=== PATIENT | male | born 1960 | race Caucasian/White ===

== ENCOUNTER 2020-01-14 09:04 | Outpatient (CLI) | payer OTHER, SELFPAY ==
[2020-01-14 10:12] LABS: Basophils Absolute Auto 0.1 K/mm3 (0.0-0.1); Eosinophils Absolute Auto 0.4 K/mm3 (0-0.3); Eosinophils Percent Auto 4.8 % (0-4.4); Hematocrit 35.7 % (42.0-52.0); Hemoglobin 11.6 g/dL (14.0-18.0); Immature Granulocyte Absolute 0.02 K/mm3 (0.00-0.031); Immature Granulocyte Percent A 0.2 % (0-0.5); Lymphocytes Absolute Auto 1.35 K/mm3 (0.9-3.2); Lymphocytes Percent Auto 16.1 % (18.3-44.2); Mean Corpuscular HGB Conc 32.5 g/dl (32-36); Mean Corpuscular Hemoglobin 31.4 pg (26-34); Mean Corpuscular Volume 96.7 fl (80-100); Mean Platelet Volume 12.2 fl (7.4-10.4); Monocytes Absolute Auto 0.8 K/mm3 (0.1-0.6); Monocytes Percent Auto 9.5 % (2.6-8.5); Neutrophils Absolute Auto 5.8 K/mm3 (1.3-6.7); Neutrophils Percent Auto 68.4 % (45.5-73.1); Platelet Count Result 216 k/mm3 (150-375); Red Blood Count 3.69 M/mm3 (4.6-6.20); Red Cell Distribution Width 13.4 % (11.5-14.5); White Blood Count 8.4 K/mm3 (4.5-10.0)
[2020-01-14 10:28] LABS: Influenza Control Positive
== END 2020-01-14 09:05 | disposition home or self-care (01) ==
PROVIDERS: PCP Internal Medicine; Visit Provider Internal Medicine
DX: R68.89 Other general symptoms and signs (principal); R79.89 Other specified abnormal findings of blood chemistry
CPT/HCPCS: 85025; 87804

== ENCOUNTER 2020-01-16 10:04 | Outpatient (CLI) | payer OTHER, SELFPAY ==
--- NOTE | ~2020-01-16 | US_ITS ---
EXAMINATION: US renal BI EXAM DATE: 01/16/2020 10:37 INDICATION: Abnormal blood chemistry. TECHNIQUE: Multiple grayscale and Doppler images of the kidneys were obtained (by a technologist who performed the scan) and subsequently reviewed. There is no prior study for comparison. FINDINGS: Right kidney: There is normal contour and echogenicity. It measures 9.2 x 5.2 x 4.5 centimeters. The re is a cyst with single septation identified inferiorly measuring about 3 cm. There is no hydronep hrosis. Left kidney: There is normal contour and echogenicity. It measures 9.9 x 5.8 x 5.9 centimeters. The re are no focal renal lesions identified. There is no hydronephrosis. The bladder is collapsed, not well visualized. IMPRESSION: 1. Right renal cyst. No hydronephrosis. Reviewed, dictated and finalized at location B. [employer]
== END 2020-01-16 10:05 | disposition home or self-care (01) ==
PROVIDERS: PCP Internal Medicine; Visit Provider Internal Medicine
DX: R79.9 Abnormal finding of blood chemistry, unspecified (principal); N28.1 Cyst of kidney, acquired
CPT/HCPCS: 76775

== ENCOUNTER 2021-01-26 17:45 | Outpatient (CLI) | payer OTHER, SELFPAY | END 2021-01-26 17:46 | disposition home or self-care (01) | LOC: ANHCOVIDVC 17:45 | PROVIDERS: PCP Internal Medicine; Visit Provider Internal Medicine | DX: Z23 Encounter for immunization (principal) | CPT/HCPCS: 0001A; 91300 ==

== ENCOUNTER 2021-02-16 17:39 | Outpatient (CLI) | payer OTHER, SELFPAY | END 2021-02-16 17:40 | disposition home or self-care (01) | LOC: ANHCOVIDVC 17:39 | PROVIDERS: PCP Internal Medicine; Visit Provider Internal Medicine | DX: Z23 Encounter for immunization (principal) | CPT/HCPCS: 0002A; 91300 ==

== ENCOUNTER 2022-04-21 12:47 | Inpatient (IN) | payer OTHER, SELFPAY ==
--- NOTE | ~2022-04-21 | XR_ITS ---
EXAMINATION: XR foot RT min 3V DATE: 04/21/2022 13:58 INDICATION: Right great toe erythema and swelling. TECHNIQUE: 4 views of right foot were obtained. COMPARISON: None. FINDINGS: Bone alignment is normal. No fracture. There is severe osteoarthritis of first metatarsopha langeal joint and moderate osteoarthritis of first interphalangeal joint. There is mild to moderate o steoarthritis of most of the midfoot joints. There are enthesophytes at the posterior and plantar asp ects of calcaneal tuberosity. IMPRESSION: 1. Polyarticular osteoarthritis. Reviewed, dictated and finalized at location A.
--- NOTE | ~2022-04-21 | MR_ITS ---
EXAMINATION: MR foot RT wo/w con DATE: 04/22/2022 12:07 INDICATION: Right great toe wound extending to the bone TECHNIQUE: Magnetic resonance imaging (MRI) of the right fore/mid foot was performed without and with 20 mL Multihance intravenous contrast. Sequences included axial, sagittal and coronal T1-weighted FS E, sagittal fluid sensitive FSE STIR, axial and coronal T2-weighted FS FSE, axial T1-weighted FS FSE and postcontrast axial, sagittal and coronal T1-weighted FS FSE . COMPARISON: Right foot radiographs dated 04/21/2022 FINDINGS: Skin ulceration plantar to the base of the first distal phalanx. Small amount of nonenhancing fluid e xtending along a sinus tract which extends deep from the ulceration to contact the a small heterotopi c ossicle along the plantar margin of the proximal articular surface of the first distal phalanx. The re is mild marrow edema and enhancement throughout the first distal phalanx without evident cortical erosion or geographic loss of T1 marrow fat signal to more specifically suggest osteomyelitis. Advanc ed osteoarthritis with subarticular cystlike changes and prominent hypertrophic osteophytes at the fi rst metatarsophalangeal joint. There are large heterotopic ossicles along the dorsal margin of the samantha int space. Additional moderate osteoarthritis at the first interphalangeal joint also with prominent marginal osteophytes and plantar sided heterotopic ossicles. No abscess or joint effusions. Additiona l mild osteoarthritis at the tarsal metatarsal and several of the remaining interphalangeal joints. P rominent fatty atrophy and mild diffuse increased fluid signal throughout the intrinsic musculature o f the foot likely related to acute on chronic neuropathy. IMPRESSION: 1. Diffuse mild marrow edema and enhancement at the first distal phalanx most likely reactive althoug h could not absolutely exclude early osteomyelitis. No cortical erosion or geographic loss of T1 fat signal to more specifically suggest osteomyelitis. 2. Deep sinus tract extending from a small ulceration plantar to the base of the first proximal phala nx to closely approaches and potentially contacting a couple small likely degenerative heterotopic os sicle separate from the distal phalanx. No abscess or joint effusion to suggest septic arthritis. 3. Polyarticular osteoarthritis at the right forefoot, advanced at the first metatarsophalangeal join t, moderate at the first interphalangeal joint and otherwise mild. Reviewed, dictated and finalized at location B. IMPRESSION: 1. Diffuse mild marrow edema and enhancement at the first distal phalanx most l ikely reactive although could not absolutely exclude early osteomyelitis. No co rtical erosion or geographic loss of T1 fat signal to more specifically suggest osteomyelitis. 2. Deep sinus tract extending from a small ulceration plantar to the base of th e first proximal phalanx to closely approaches and potentially contacting a cou ple small likely degenerative heterotopic ossicle separate from the distal phal anx. No abscess or joint effusion to suggest septic arthritis. 3. Polyarticular osteoarthritis at the right forefoot, advanced at the first me tatarsophalangeal joint, moderate at the first interphalangeal joint and otherw ise mild.
--- NOTE | ~2022-04-21 | XR_ITS ---
EXAMINATION: XR surgery orthopedic DATE: 04/23/2022 14:29 INDICATION: Right great toe infection. TECHNIQUE: A single intraoperative fluoroscopic view of right foot was obtained. I was not present. F luoroscopy exposure time was 6 seconds. COMPARISON: Right foot MRI 04/22/2022, radiograph 04/21/2022 FINDINGS: Bone alignment is normal. There is fixation of first metatarsal, first proximal phalanx, an d first distal phalanx with a percutaneous pin. There are beads around first metatarsophalangeal join t. There is resection of osteophytes at first metatarsophalangeal joint. IMPRESSION: 1. Great toe surgical changes. Reviewed, dictated and finalized at location A.
[2022-04-21 12:48] VITALS: BP 127/68; PULSE 88; RESP 16; TEMP 36.8; O2SAT 100
[2022-04-21 13:43] LABS: Basophils Percent Auto 0.2 % (0.2-1.2); Hematocrit 34.9 % (42.0-52.0); Hemoglobin 12.1 g/dL (14.0-18.0); Immature Granulocyte Absolute 0.07 K/mm3 (0.00-0.031); Immature Granulocyte Percent A 0.6 % (0-0.5); Lymphocytes Absolute Auto 0.34 K/mm3 (0.9-3.2); Lymphocytes Percent Auto 2.7 % (18.3-44.2); Mean Corpuscular HGB Conc 34.7 g/dl (32-36); Mean Corpuscular Hemoglobin 32.5 pg (26-34); Mean Corpuscular Volume 93.8 fl (80-100); Mean Platelet Volume 12.3 fl (7.4-10.4); Monocytes Absolute Auto 0.4 K/mm3 (0.1-0.6); Monocytes Percent Auto 3.1 % (2.6-8.5); Neutrophils Absolute Auto 11.8 K/mm3 (1.3-6.7); Neutrophils Percent Auto 93.4 % (45.5-73.1); Platelet Count Result 160 k/mm3 (150-375); Red Blood Count 3.72 M/mm3 (4.6-6.20); Red Cell Distribution Width 13.7 % (11.5-14.5); White Blood Count 12.6 K/mm3 (4.5-10.0)
[2022-04-21 13:52] LABS: Lactic Acid Reflex 1.2 mmol/L (0.7-2.0)
[2022-04-21 13:55] LABS: Alanine Aminotransferase 21 U/L (6-50); Albumin Level 4.6 g/dL (3.5-5.1); Alkaline Phosphatase 91 U/L (38-126); Anion Gap 12 mmol/L (8-16); Aspartate Amino Transferase 29 U/L (17-59); Bilirubin,Total 1.6 mg/dL (0.2-1.3); Blood Urea Nitrogen 27 mg/dL (9-20); Calcium 9.3 mg/dL (8.4-10.2); Carbon Dioxide 15 mmol/L (22-30); Chloride 108 mmol/L (98-107); Estimated CRCL calculation 52 ml/min; Estimated Glomerular Filt Rate 39; Glucose 153 mg/dL (65-110); Potassium 4.4 mmol/L (3.4-5.0); Sodium 135 mmol/L (137-145)
[2022-04-21 13:56] LABS: INR 1.2
[2022-04-21 13:57] LABS: Partial Thromboplastin Time 38.4 SECONDS (22.3-36.8)
[2022-04-21] MEDS: SODIUM CHLORIDE 0.9% IV 1,000 ML 999 ML IV CONT (14:24)
[2022-04-21 14:59] LABS: Appearance Urine Clear (Clear); Bilirubin Urine Negative (Negative); Blood Urine Negative (Negative); Color Urine Yellow (Yellow); Glucose Urine UA Negative (Negative); Ketones Urine Negative (Negative); Leukocyte Esterase Ur Negative LEU/UL (Negative); Nitrate Urine Negative (Negative); Protein Urine Negative (Negative); Specific Grav Ur 1.015 (1.001-1.035); pH Urine 5.5 (5.0-9.0)
[2022-04-21 15:09] LABS: Add Urine Microscopic? NO
[2022-04-21 15:22] VITALS: BP 120/67; PULSE 75; RESP 18; O2SAT 97
--- NOTE | 2022-04-21 15:42 | ED.GENADULT ---
HPI - General Adult General Chief complaint: Extremity Injury, Lower Stated complaint: foot pain Time Seen by Provider: 04/21/22 13:12 Source: RN notes reviewed History of Present Illness HPI narrative: Patient presents emergency department from home for right great toe wound. Patient states that he has had redness and swelling of his right great toe for approximately a month that is progressively been worsening. He states he is got history of peripheral neuropathy and had a callus in that area and that the callus of them been shaved and noted that he had the ulcer underneath it today by Dr. Baez he states he been referred to the ER for further evaluation he states he does have peripheral neuropathy but had been having some increased pain in his foot he denies any fevers or chills states he is currently on steroid but denies being on any antibiotics Related Data Home Medications Medication Instructions Recorded Confirmed cream base no.171 (bulk) applic miscellaneous TID PRN 04/03/21 04/20/22 (CompoundMax Base) neuropathy cyanocobalamin (vitamin B-12) 1,000 mcg PO DAILY 04/30/21 04/20/22 1,000 mcg tablet (Vitamin B-12) omega-3 fatty acids 1,000 mg 2,000 mg PO BID 04/30/21 04/20/22 capsule (Fish Oil Concentrate) dextromethorphan-guaifenesin 30 1 tablet PO Q12H 04/20/22 04/20/22 mg-600 mg tablet extended [id number] hr (Mucinex DM) Allergies Allergy/AdvReac Type Severity Reaction Status Date / Time No Known Allergies Allergy Mild Verified 04/20/22 07:07 Review of Systems Review of Systems: Gen.: Denies fevers or chills ENT: Denies congestion Respiratory: Denies shortness of breath CV: Denies chest pain or palpitations GI: Denies abdominal pain nausea, emesis Musculoskeletal: Denies back pain or muscle pain Neuro: Denies numbness, tingling, weakness or focal weakness Skin: See HPI Except as documented, all other systems reviewed and negative PMFSH Past Medical History Medical History Anxiety Benign essential hypertension BMI 31.0-31.9,adult BMI 32.0-32.9,adult BMI 33.0-33.9,adult Callus of toe CKD (chronic kidney disease) Complete tear of rotator cuff Creatinine elevation Decreased anthropologist strength DJD (degenerative joint disease), multiple sites Dupuytren's contracture Dupuytren's contracture of left hand Elevated glucose Elevated LFTs Elevated serum creatinine Elevated serum GGT level Elevated TSH Encounter for preventive health examination Encounter for routine adult health examination without abnormal findings Encounter for special screening examination for neoplasm of prostate Erectile dysfunction Follow up Gouty arthritis Hyperlipidemia Nausea and vomiting 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 CARDIOVASCULAR: Regular rate and rhythm without murmurs rubs or gallops. ABDOMINAL: Soft, nontender, MUSCULOSKELETAl: Moves all extremities. No clubbing, cyanosis 2+ edema bilateral lower extremities the right great toe is erythematous and swollen with erythema extending to the midfoot there is an ulcerative wound over the base of the toe with mild serous drainage no fluctuance NEURO: Awake and alert. Following commands, speech normal, no focal deficits SKIN:: Warm, dry. No
--- NOTE | 2022-04-21 17:15 | PC.NURSE ---
This patient, Segundo Danielson, was admitted to 3 [facility] Surg Room 327-01. Patient/family oriented to hospital policies and general routines including ID bracelet, bed and alarms, visiting hours, pain management, procedures, bathroom and other care routines, personal items, smoking policy, room service/diet, and visiting hours. Report received from Valentina GOMES Information on how to activate the Rapid Response Team has been discussed. Patient/Family are encouraged to report perceived risks to care and to ask questions if they do not understand what they are told or what they should do.
[2022-04-21] MEDS: SODIUM CHLORIDE 0.9% IV 1,000 ML 80 ML IV CONT (17:57)
[2022-04-21 17:59] VITALS: BP 107/63; PULSE 69; RESP 18; TEMP 36.1; O2SAT 98
--- NOTE | 2022-04-21 18:00 | PM.IMHP ---
H&P: HPI History of Present Illness Date/Time: 04/21/22 18:00 Chief Complaint: Right 1st toe wound. Narrative: This is a pleasant 62-year-old male with history of gout, rheumatoid arthritis, peripheral neuropathy, hypertension, and hyperlipidemia who presented to the ED for evaluation of a right 1st toe wound. He frequently has gout and rheumatoid arthritis flares affecting his right 1st toe, and sometime in mid January he once again developed pain, swelling, and redness of that toe. Initially there were concerns for possible infection and he was treated with a round of antibiotics with some benefit. Two weeks after finishing the antibiotics, however the pain, redness, and swelling returned and he went back to see his doctor at which time he was prescribed steroids for suspected gout. Re-evaluation a week later demonstrated no improvement and he was referred to Podiatry. He saw Dr. Green this morning at which time a large callus area on the plantar aspect of that toe was shaved, revealing an ulcer tracking to the bone. He has been afebrile however notes chills the past couple of nights. He also endorses nausea with poor oral intake the past couple of days and he believes that he is dehydrated as his urine has been darker than usual. In fact he had difficulties even providing a urine sample today. White blood cell count today was 12.6 and ESR and CRP were markedly elevated at greater than 140 and 18.5 respectively. Foot x-ray showed Severe osteoarthritis of the 1st metatarsophalangeal joint and moderate arthritis of the 1st interphalangeal joint with no evidence osteomyelitis. He is now being admitted for IV antibiotics. Review of Systems Review of Systems: Twelve systems were reviewed. No recent cold or flu symptoms though he does report generalized malaise the last several days. No sick contacts. He has idiopathic peripheral neuropathy and he really has no discomfort with the wound. Random glucose today was elevated and he has no known history of diabetes. Hemoglobin A1c in January 2022 was 5.2%. No longer on methotrexate for RA. Except as documented, all other systems were reviewed and are negative. [facility] Past Medical History Medical History (Updated 04/21/22 @ 20:34 by Trina Robles PA-C) Anxiety Benign essential hypertension BMI 32.0-32.9,adult Chronic kidney disease, stage 3 Dupuytren's contracture Erectile dysfunction Gouty arthritis Hyperlipidemia Peripheral neuropathy Rheumatoid arthritis Vitamin B12 deficiency Vitamin D deficiency Surgical History Surgical History (Updated 04/21/22 @ 20:28 by Trina Robles PA-C) History of appendectomy Family History Family History Grandparent Heart attack AAA (abdominal aortic aneurysm) Lupus Social History Social History (Updated 04/21/22 @ 20:30 by Trina Robles PA-C) Social History: Surrogate decision maker: Peter Danielson, spouse. Code status: Full code. Smoking packs per day: 0.05 Smoking cigarettes per day: 1.0 Years smoked: 20 Smoking pack-years: 1.00 Smoking status: Former smoker Tobacco type: cigarettes Second hand tobacco smoke exposure: No Alcohol intake: current Drinks per week: 3 Substance use: never Living arrangements: with family Additional occupation/education comments: [employer] he[employer]o at [employer]. Spiritual care concerns: No Meds Home Medications and Allergies Home Medications Medication Instructions Recorded Confirmed Type folic acid 1 mg tablet 1 mg PO DAILY #90 tabs 04/30/21 04/21/22 Rx omega-3 fatty acids 1,000 mg 2,000 mg PO BID 04/30/21 04/21/22 History capsule (Fish Oil Concentrate) acyclovir 400 mg tablet 400 mg PO TID PRN cold sores #30 12/08/21 04/21/22 Rx tabs acetaminophen 300 mg-codeine 30 mg 1 tablet PO Q6H PRN pain #50 tabs 03/09/22 04/21/22 Rx tablet furosemide 20 mg tablet (Lasix) 20 mg PO QAM #90 tabs
[2022-04-21 18:13] VITALS: BMI 32.1
[2022-04-21 18:43] LABS: Erythrocyte Sedimentation Rate > 140 mm/hr (0-20)
[2022-04-21 18:47] LABS: CRP 18.5 mg/dL (<1.0)
[2022-04-21 20:00] VITALS: PULSE 69; RESP 18; O2SAT 98
[2022-04-21 21:19] LABS: Anion Gap 8 mmol/L (8-16); Blood Urea Nitrogen 33 mg/dL (9-20); Calcium 8.8 mg/dL (8.4-10.2); Carbon Dioxide 20 mmol/L (22-30); Chloride 106 mmol/L (98-107); Estimated CRCL calculation 52 ml/min; Estimated Glomerular Filt Rate 39; Glucose 129 mg/dL (65-110); Potassium 5.1 mmol/L (3.4-5.0); Sodium 134 mmol/L (137-145)
[2022-04-21 22:00] VITALS: BP 101/60; PULSE 53; RESP 18; TEMP 36.6; O2SAT 96
[2022-04-22 05:52] VITALS: BP 109/59; PULSE 51; RESP 20; TEMP 36.9; O2SAT 97
[2022-04-22 06:54] LABS: Basophils Percent Auto 0.4 % (0.2-1.2); Eosinophils Percent Auto 0.2 % (0-4.4); Hematocrit 32.3 % (42.0-52.0); Hemoglobin 10.4 g/dL (14.0-18.0); Immature Granulocyte Absolute 0.06 K/mm3 (0.00-0.031); Immature Granulocyte Percent A 0.6 % (0-0.5); Mean Corpuscular HGB Conc 32.2 g/dl (32-36); Mean Corpuscular Hemoglobin 31.7 pg (26-34); Mean Corpuscular Volume 98.5 fl (80-100); Mean Platelet Volume 12.5 fl (7.4-10.4); Monocytes Percent Auto 10.4 % (2.6-8.5); Neutrophils Absolute Auto 7.6 K/mm3 (1.3-6.7); Neutrophils Percent Auto 76.4 % (45.5-73.1); Platelet Count Result 152 k/mm3 (150-375); Red Blood Count 3.28 M/mm3 (4.6-6.20); Red Cell Distribution Width 13.4 % (11.5-14.5)
[2022-04-22 07:06] LABS: Anion Gap 8 mmol/L (8-16); Blood Urea Nitrogen 31 mg/dL (9-20); Calcium 8.4 mg/dL (8.4-10.2); Carbon Dioxide 18 mmol/L (22-30); Chloride 109 mmol/L (98-107); Estimated CRCL calculation 62 ml/min; Estimated Glomerular Filt Rate 48; Glucose 106 mg/dL (65-110); Potassium 4.1 mmol/L (3.4-5.0); Sodium 135 mmol/L (137-145); Uric Acid 2.8 mg/dL (3.5-8.5)
[2022-04-22 09:12] LABS: Hemoglobin A1C 5.1 % (<5.7)
[2022-04-22] MEDS: SODIUM CHLORIDE 0.9% IV 1,000 ML 115 ML IV CONT (09:14)
[2022-04-22] MEDS: FOLIC ACID 1 MG TABLET PO (09:15)
[2022-04-22] MEDS: allopurinoL 300 MG TABLET PO ×2 (09:15→16:44)
[2022-04-22] MEDS: OMEGA 3 POLYUNSAT FATTY ACIDS 1 GM CAP 2 GM PO ×2 (09:15→16:43)
[2022-04-22] MEDS: ATORVASTATIN 20 MG TABLET PO (09:15)
[2022-04-22] MEDS: ACETAMINOPHEN/CODEINE (*CRX) 300/30 MG TABLET 1 TAB PO (09:26)
--- NOTE | 2022-04-22 09:49 | PCCCNOTE ---
On 04/22/22, the student, [Dodie Cuenca], provided care and completed [facility] documentation on this patient. I have reviewed the student's documentation and agree with the findings.
[2022-04-22 14:20] VITALS: BP 111/66; PULSE 55; RESP 18; TEMP 36.3; O2SAT 97
--- NOTE | 2022-04-22 15:11 | PM.IMPN ---
Progress Note: A&P Assessment and Plan (1) Open wound of right great toe: Code(s): S91.101A - Unspecified open wound of right great toe without damage to nail, initial encounter Status: Acute Assessment and Plan: -No evidence of osteomyelitis on x-ray though wound does track to bone. -MRI unable to definitively exclude osteomyelitis -Hgb A1c 5.1 -Dr. Baez consulted and his input is appreciated. -Continue vanc and impenem (2) Cellulitis of great toe of right foot: Code(s): L03.031 - Cellulitis of right toe Status: Acute Assessment and Plan: -Imipenem and vancomycin, pending cultures (3) Peripheral neuropathy: Qualifiers: Peripheral neuropathy type: polyneuropathy, unspecified Qualified Code(s): G62.9 - Polyneuropathy, unspecified Code(s): G62.9 - Polyneuropathy, unspecified Status: Acute Assessment and Plan: -Idiopathic peripheral neuropathy per patient report. -hemoglobin A1c 5.1 (4) Hyperglycemia: Code(s): R73.9 - Hyperglycemia, unspecified Status: Acute Assessment and Plan: -Random glucose was 153 on arrival though he was recently on steroids. -hemoglobin A1c is 5.1 (5) Chronic kidney disease, stage 3: Code(s): N18.30 - Chronic kidney disease, stage 3 unspecified Status: Acute Assessment and Plan: -Creatinine is higher than baseline, likely due to poor oral intake the past couple of days. -Improving with IV hydration, was 1.8 down to 1.5 -Repeat BMP in the AM (6) Benign essential hypertension: Code(s): I10 - Essential (primary) hypertension Status: Acute Assessment and Plan: -Blood pressures were reviewed and they are well controlled. -continue home meds (7) Rheumatoid arthritis: Qualifiers: Rheumatoid arthritis location: multiple sites Rheumatoid factor presence: unspecified presence Qualified Code(s): M06.9 - Rheumatoid arthritis, unspecified Code(s): M06.9 - Rheumatoid arthritis, unspecified Status: Acute Assessment and Plan: -No longer on methotrexate. Subjective Date/time seen: 04/22/22 15:11 Interval history: 62-year-old male with history of gout, rheumatoid arthritis, peripheral neuropathy, hypertension, and hyperlipidemia, admitted for R great toe ulcer. Pt had just spoken with podiatry and was told he may need amputation, so therefore was visibly anxious during our conversation today. He denies pain in the toe. Reports lack of sensation secondary to his neuropathy. Had some chills prior to arrival but now denies fever, chills, N/V. No cp/sob. Review of Systems Review of Systems: All systems reviewed & are unremarkable except as noted in HPI and below Exam Narrative: General: Well-developed male sitting up in bed no distress. Slightly anxious. Weight: 113.5 kg. BMI: 32.1. HEENT: PERRL, EOMI. Sclerae anicteric. Moist mucous membranes. Neck: Supple. Respiratory: Lungs are clear to auscultation bilaterally. Cardiovascular: Regular rate and rhythm with S1-S2. Gastrointestinal: Abdomen is soft, nontender, and nondistended with positive bowel sounds. No organomegaly. Skin: Warm and dry. there is an approximately dime-sized wound on the plantar aspect of the right 1st toe with serosanguineous drainage. Cotton swab did track nearly to the bone. Surrounding erythema on to the dorsum of the toe with significant edema. Warmth emanates from the toe. Extremities: No cyanosis, clubbing, or edema. Radial and pedal pulses intact. Neurological: Alert. Cranial nerves 2-12 are grossly intact. Decreased sensation in the lower legs from neuropathy. Psychiatric: Pleasant and cooperative with normal mood and affect. Judgment and insight intact. Objective Data Vital Signs Vital Signs: Vital Signs - 24 hr 04/21/22 15:22 04/21/22 17:59 04/21/22 20:00 Temperature 97.0 F L
[2022-04-22] MEDS: PANTOPRAZOLE 40 MG TABLET PO (16:44)
--- NOTE | 2022-04-22 19:37 | PM.IMHP ---
H&P: HPI History of Present Illness Date/Time: 04/22/22 19:37 Chief Complaint: Foot infection right foot Narrative: The patient was admitted through [facility] ER for a foot wound that started to drain and get red hot and swollen over the last week, he states it started as a callus that eventually broke open . He was referred over to my office through his primary care physicians office 04/21/22, when the foot started to develop signs of infection. He was prescribed Doxycycline through his PCP, with no improvement over the last week. He states that he does have rheumatoid arthritis as well as gout, his right great toe joint has deformed over the last decade. He relates F/C/N malaise as well as right great toe pain, this is unusual for him as he has been diagnosed with severe peripheral neuropathy and has no sensation to his feet. He is not diabetic, however he has has idiopathic neuropathy. Review of Systems Constitutional: Comments: Chills, nausea and malaise. Musculoskeletal: Comments: Pain to the right foot with swelling. [facility] Past Medical History Medical History (Updated 04/22/22 @ 20:02 by Serg Baez JR, MD) Anxiety Benign essential hypertension BMI 32.0-32.9,adult Chronic kidney disease, stage 3 Dupuytren's contracture Erectile dysfunction Gouty arthritis Hyperlipidemia Peripheral neuropathy Rheumatoid arthritis Vitamin B12 deficiency Vitamin D deficiency Surgical History Surgical History (Updated 04/21/22 @ 20:28 by Trina Robles PA-C) History of appendectomy Family History Family History Grandparent Heart attack AAA (abdominal aortic aneurysm) Lupus Social History Social History (Updated 04/21/22 @ 20:30 by Trina Robles PA-C) Social History: Surrogate decision maker: Peter Danielson, spouse. Code status: Full code. 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 Spiritual care concerns: No Meds Home Medications and Allergies Home Medications Medication Instructions Recorded Confirmed Type folic acid 1 mg tablet 1 mg PO DAILY #90 tabs 04/30/21 04/21/22 Rx omega-3 fatty acids 1,000 mg 2,000 mg PO BID 04/30/21 04/21/22 History capsule (Fish Oil Concentrate) acyclovir 400 mg tablet 400 mg PO TID PRN cold sores #30 12/08/21 04/21/22 Rx tabs acetaminophen 300 mg-codeine 30 mg 1 tablet PO Q6H PRN pain #50 tabs 03/09/22 04/21/22 Rx tablet furosemide 20 mg tablet (Lasix) 20 mg PO QAM #90 tabs 04/07/22 04/21/22 Rx losartan 100 mg tablet 100 mg PO DAILY #90 tabs 04/07/22 04/21/22 Rx potassium chloride 8 mEq 8 meq PO DAILY #90 caps 04/07/22 04/21/22 Rx capsule,extended release dextromethorphan-guaifenesin 30 1 tablet PO Q12H PRN Allergic 04/20/22 04/21/22 History mg-600 mg tablet extended Symptoms [id number] hr (Mucinex DM) prednisone 20 mg tablet 40 mg PO DAILY 5 days #10 tabs 04/20/22 04/21/22 Rx allopurinol 300 mg tablet 300 mg PO BID 04/21/22 04/21/22 History atorvastatin 20 mg tablet 20 mg PO DAILY 04/21/22 04/21/22 History Allergies Allergy/AdvReac Type Severity Reaction Status Date / Time No Known Allergies Allergy Mild Verified 04/21/22 18:58 Vital Signs Vital Signs - 24 hr 04/21/22 20:00 04/21/22 22:00 04/22/22 05:52 Temperature 36.6 C 36.9 C Pulse Rate 69 53 L 51 L Respiratory Rate 18 18 20 Blood Pressure 101/60 109/59 L Pulse Oximetry 98 96 97 Oxygen Delivery Room Air 04/22/22 14:20 Temperature 36.3 C L Pulse Rate 55 L Respiratory Rate 18 Blood Pressure 111/66 Pulse Oximetry 97 Oxygen Delivery
[2022-04-22 20:00] VITALS: PULSE 71; RESP 16; O2SAT 98
[2022-04-22 20:30] VITALS: PULSE 60; O2SAT 94
[2022-04-22 21:53] VITALS: BP 110/61; PULSE 71; RESP 16; TEMP 36.2; O2SAT 98
[2022-04-23] VITALS (13 sets, daily range): BP systolic 110–143; BP diastolic 46–92; PULSE 52–81; RESP 12–20; TEMP 36.2–37.1; O2SAT 96–100
--- NOTE | 2022-04-23 07:05 | WPDHPUPDATE1 ---
History and Physical Update Update Date/Time: 04/23/22 07:05 History and Physical has been reviewed, including an updated exam of the patient. There are NO changes in the patient's condition. Risks, benefits, and alternatives have been discussed and questions answered. Patient agrees to proceed with procedure.
[2022-04-23 07:55] LABS: Basophils Absolute Auto 0.1 K/mm3 (0.0-0.1); Basophils Percent Auto 1.1 % (0.2-1.2); Eosinophils Absolute Auto 0.1 K/mm3 (0-0.3); Eosinophils Percent Auto 1.8 % (0-4.4); Hematocrit 33.7 % (42.0-52.0); Hemoglobin 11.2 g/dL (14.0-18.0); Immature Granulocyte Absolute 0.05 K/mm3 (0.00-0.031); Immature Granulocyte Percent A 0.7 % (0-0.5); Lymphocytes Absolute Auto 0.91 K/mm3 (0.9-3.2); Lymphocytes Percent Auto 12.4 % (18.3-44.2); Mean Corpuscular HGB Conc 33.2 g/dl (32-36); Mean Corpuscular Volume 96.3 fl (80-100); Mean Platelet Volume 11.9 fl (7.4-10.4); Monocytes Absolute Auto 0.6 K/mm3 (0.1-0.6); Monocytes Percent Auto 8.3 % (2.6-8.5); Neutrophils Absolute Auto 5.6 K/mm3 (1.3-6.7); Neutrophils Percent Auto 75.7 % (45.5-73.1); Platelet Count Result 181 k/mm3 (150-375); Red Cell Distribution Width 13.8 % (11.5-14.5); White Blood Count 7.3 K/mm3 (4.5-10.0)
[2022-04-23 08:17] LABS: Anion Gap 6 mmol/L (8-16); Blood Urea Nitrogen 23 mg/dL (9-20); Calcium 8.9 mg/dL (8.4-10.2); Carbon Dioxide 20 mmol/L (22-30); Chloride 113 mmol/L (98-107); Estimated CRCL calculation 77 ml/min; Estimated Glomerular Filt Rate > 60; Glucose 113 mg/dL (65-110); Sodium 139 mmol/L (137-145)
[2022-04-23] MEDS: allopurinoL 300 MG TABLET PO (09:25)
[2022-04-23] MEDS: PANTOPRAZOLE 40 MG TABLET PO (09:25)
[2022-04-23] MEDS: OMEGA 3 POLYUNSAT FATTY ACIDS 1 GM CAP 2 GM PO (09:25)
[2022-04-23] MEDS: ATORVASTATIN 20 MG TABLET PO (09:25)
[2022-04-23] MEDS: FOLIC ACID 1 MG TABLET PO (09:25)
--- NOTE | 2022-04-23 09:28 | PM.IMPN ---
Progress Note: A&P Assessment and Plan (1) Open wound of right great toe: Code(s): S91.101A - Unspecified open wound of right great toe without damage to nail, initial encounter Status: Acute Assessment and Plan: -No evidence of osteomyelitis on x-ray though wound does track to bone. -MRI unable to definitively exclude osteomyelitis -Hgb A1c 5.1 -Dr. Baez consulted and his input is appreciated. -Continue vanc and impenem -OR today for amputation (2) Cellulitis of great toe of right foot: Code(s): L03.031 - Cellulitis of right toe Status: Acute Assessment and Plan: -Imipenem and vancomycin, pending cultures (3) Peripheral neuropathy: Qualifiers: Peripheral neuropathy type: polyneuropathy, unspecified Qualified Code(s): G62.9 - Polyneuropathy, unspecified Code(s): G62.9 - Polyneuropathy, unspecified Status: Acute Assessment and Plan: -Idiopathic peripheral neuropathy per patient report. -hemoglobin A1c 5.1 (4) Hyperglycemia: Code(s): R73.9 - Hyperglycemia, unspecified Status: Acute Assessment and Plan: -Random glucose was 153 on arrival though he was recently on steroids. -hemoglobin A1c is 5.1 (5) Chronic kidney disease, stage 3: Code(s): N18.30 - Chronic kidney disease, stage 3 unspecified Status: Acute Assessment and Plan: -Creatinine is higher than baseline, likely due to poor oral intake the past couple of days. -Improving with IV hydration, was 1.8 down to 1.2 -Repeat BMP in the AM (6) Benign essential hypertension: Code(s): I10 - Essential (primary) hypertension Status: Acute Assessment and Plan: -Blood pressures were reviewed and they are well controlled. -continue home meds (7) Rheumatoid arthritis: Qualifiers: Rheumatoid arthritis location: multiple sites Rheumatoid factor presence: unspecified presence Qualified Code(s): M06.9 - Rheumatoid arthritis, unspecified Code(s): M06.9 - Rheumatoid arthritis, unspecified Status: Acute Assessment and Plan: -No longer on methotrexate. Subjective Date/time seen: 04/23/22 09:28 Interval history: 62-year-old male with history of gout, rheumatoid arthritis, peripheral neuropathy, hypertension, and hyperlipidemia, admitted for R great toe ulcer. Pt is going to OR for amputation today. Denies significant pain. No N/V/F/Ch/cp/sob. Review of Systems Review of Systems: All systems reviewed & are unremarkable except as noted in HPI and below Exam Narrative: General: Well-developed male sitting up in bed no distress. Weight: 113.5 kg. BMI: 32.1. HEENT: PERRL, EOMI. Sclerae anicteric. Moist mucous membranes. Neck: Supple. Respiratory: Lungs are clear to auscultation bilaterally. Cardiovascular: Regular rate and rhythm with S1-S2. Gastrointestinal: Abdomen is soft, nontender, and nondistended with positive bowel sounds. No organomegaly. Skin: Warm and dry. there is an approximately dime-sized wound on the plantar aspect of the right 1st toe with serosanguineous drainage. Cotton swab did track nearly to the bone. Surrounding erythema on to the dorsum of the toe with significant edema. Warmth emanates from the toe. Extremities: No cyanosis, clubbing, or edema. Radial and pedal pulses intact. Neurological: Alert. Cranial nerves 2-12 are grossly intact. Decreased sensation in the lower legs from neuropathy. Psychiatric: Pleasant and cooperative with normal mood and affect. Judgment and insight intact. Objective Data Vital Signs Vital Signs: Vital Signs - 24 hr 04/22/22 14:20 04/22/22 20:30 04/22/22 21:53 Temperature 97.4 F L 97.2 F L Pulse Rate 55 L 60 71 Respiratory Rate 18 16 Blood Pressure 111/66 110/61 Pulse Oximetry 97 94 98 Oxygen Delivery Room Air 04/22/22 20:00 04/23/22 05:41 Temperature 98.8 F Pulse Rat
[2022-04-23 09:45] LABS: Vancomycin Trough 21.1 ug/mL (10.0-20.0)
--- NOTE | 2022-04-23 11:29 | PC.NURSE ---
Patient transferred to Surgery via stretcher at 1110.
--- NOTE | 2022-04-23 12:30 | WPDANESEPPF ---
Anes - Initial Pre Proc Eval Procedure: Operation Date: 04/23/22 12:30 Proposed Procedures p Amputation of Right Hallux, with Possible First Ray Resection - Serg Baez JR, MD Date/Time: 04/23/22 12:30 Surgeon: Joyce Mazariegos PA-C Pre Op Diagnosis: Cellulitis great toe right,osteomyelitis rt hallux Patient Data Age: 62 Gender: M Height: 1.88 m Weight: 113.4 kg Last Vital Signs Temp 36.3 C L 04/23/22 11:22 Pulse 66 04/23/22 11:22 Resp 18 04/23/22 11:22 BP 121/72 04/23/22 11:22 Pulse Ox 99 04/23/22 11:22 O2 Del Method Room Air 04/23/22 11:22 Allergies Allergy/AdvReac Type Severity Reaction Status Date / Time No Known Allergies Allergy Mild Verified 04/23/22 11:49 Home Medications Medication Instructions Recorded Confirmed Type folic acid 1 mg tablet 1 mg PO DAILY #90 tabs 04/30/21 04/23/22 Rx omega-3 fatty acids 1,000 mg 2,000 mg PO BID 04/30/21 04/23/22 History capsule (Fish Oil Concentrate) acyclovir 400 mg tablet 400 mg PO TID PRN cold sores #30 12/08/21 04/23/22 Rx tabs acetaminophen 300 mg-codeine 30 mg 1 tablet PO Q6H PRN pain #50 tabs 03/09/22 04/23/22 Rx tablet furosemide 20 mg tablet (Lasix) 20 mg PO QAM #90 tabs 04/07/22 04/23/22 Rx losartan 100 mg tablet 100 mg PO DAILY #90 tabs 04/07/22 04/23/22 Rx potassium chloride 8 mEq 8 meq PO DAILY #90 caps 04/07/22 04/23/22 Rx capsule,extended release dextromethorphan-guaifenesin 30 1 tablet PO Q12H PRN Allergic 04/20/22 04/23/22 History mg-600 mg tablet extended Symptoms [id number] hr (Mucinex DM) prednisone 20 mg tablet 40 mg PO DAILY 5 days #10 tabs 04/20/22 04/23/22 Rx allopurinol 300 mg tablet 300 mg PO BID 06/01/22 06/03/22 History atorvastatin 20 mg tablet 20 mg PO DAILY 04/21/22 04/23/22 History Laboratory Tests 04/23/22 04/23/22 04/23/22 07:42 07:42 07:42 WBC 7.3 K/mm3 K/mm3 (4.5-10.0) RBC 3.50 M/mm3 L M/mm3 (4.6-6.20) Hgb 11.2 g/dL L g/dL (14.0-18.0) Hct 33.7 % L % (42.0-52.0) MCV 96.3 fl fl (80-100) MCH 32.0 pg pg (26-34) MCHC 33.2 g/dl g/dl (32-36) RDW 13.8 % % (11.5-14.5) Plt Count 181 k/mm3 k/mm3 (150-375) MPV 11.9 fl H fl (7.4-10.4) Immature Gran % (Auto) 0.7 % H % (0-0.5) Neut % (Auto) 75.7 % H % (45.5-73.1) Lymph % (Auto) 12.4 % L % (18.3-44.2) Gem % (Auto) 8.3 % % (2.6-8.5) Eos % (Auto) 1.8 % % (0-4.4) Baso % (Auto) 1.1 % % (0.2-1.2) Lymph # (Auto) 0.91 K/mm3 K/mm3 (0.9-3.2) Gem # (Auto) 0.6 K/mm3 K/mm3 (0.1-0.6) Eos # (Auto) 0.1 K/mm3 K/mm3 (0-0.3) Baso # (Auto) 0.1 K/mm3 K/mm3 (0.0-0.1) Abs Immat Gran (auto) 0.05 K/mm3 H K/mm3 (0.00-0.031) Absolute Neuts (auto) 5.6 K/mm3 K/mm3 (1.3-6.7) Absolute Nucleated RBC 0.0 K/mm3 K/mm3 (0.0-0.012) Nucleated RBC % 0.0 % % (0.0-0.2) Sodium 139 mmol/L mmol/L (137-145) Potassium 4.0 mmol/L mmol/L (3.4-5.0) Chloride 113 mmol/L H mmol/L (98-107) Carbon Dioxide 20 mmol/L L mmol/L (22-30) Anion Gap 6 mmol/L L mmol/L (8-16) BUN 23 mg/dL H mg/dL (9-20) Creatinine 1.20 mg/dL mg/dL (0.7-1.3) Estim Creat Clear Calc 77 ml/min ml/min Estimated GFR > 60 (59 - ) Glucose 113 mg/dL H mg/dL (65-110) Calcium 8.9 mg/dL mg/dL (8.4-10.2) Vancomycin Trough 21.1 ug/mL H ug/mL (10.0-20.0) Patient hx anesthesia problems: none Family hx anesthesia problems: none Results Review: All pre-operative results and documents have been reviewed as part of the pre-operative evaluation. [facility] Past Medical History Medical History Anxiety Benign essential hypertension BMI 32.0-32.9,adult
[2022-04-23] MEDS: VANCOMYCIN HCL 1,000 MG VIAL 1000 MG TOPICAL (13:32)
[2022-04-23] MEDS: LIDOCAINE HCL 2% LOCAL INJ 20 ML VIAL 10 ML INFILTRATE (13:32)
[2022-04-23] MEDS: LACTATED RINGERS 1,000 ML 30 ML IV CONT (14:30)
--- NOTE | 2022-04-23 15:24 | W.PM.PROC2 ---
Procedure Note - Detailed Date of Procedure 04/23/22 Pre-op Diagnosis 1. Cellulitis great toe right foot with a chronic ulceration 2. Osteomyelitis right hallux 3. 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 Arthroplasty of the right hallux with K wire fixation 2. Cheilectomy of the first metatarsal phalangeal joint right foot Surgeon Serg Baez JR, DPM Findings No visible joint infection nor fragmentation noted to the interphalangeal joint of the right hallux. Significant hypertrophy and osteophytosis with joint degeneration Description of Procedure PROCEDURE IN DETAIL: Under mild sedation, the patient was brought into the operating room, placed on the operating table in supine position. A pneumatic ankle tourniquet was placed about the patient's right ankle. Following general LMA, a local anesthetic block was obtained about the foot and ankle utilizing 20 cc of a 1:1 of 2% Lidocaine plain and 0.5% Marcaine plain. The foot was then scrubbed, prepped, and draped in the usual aseptic manner. An Esmarch bandage was then used to exsanguinate the patient's foot and the pneumatic ankle tourniquet was then inflated. Surgery began in the following manner: Attention was directed to the dorsal aspect of the 1st metatarsophalangeal joint where there was an enourmous osteophyte with hypertrophy to the entire joint. The incision was made starting along the central shaft of the 1st metatarsal and extending just proximal to the proximal nail fold of the hallux . The incision was continued deep down through the subcutaneous tissues using sharp and blunt dissection. All bleeders were cauterized as necessary. At this point, the dissection was continued down to the level of the periosteum and capsular structures overlying the 1st metatarsophalangeal joint. A full length periosteum and capsular incision was made just medial to the extensor hallucis longus tendon. The periosteum and capsular structures were freed from the base of the proximal phalanx as well as the distal 1st metatarsal. At this point, the 1st metatarsophalangeal joint was identified. There was severe loss of articular cartilage to the dorsal aspect of head of the 1st metatarsal . There was significant broadening and hypertrophy of the 1st metatarsophalangeal joint with a very large dorsal spur. Utilizing a sagittal bone saw, the hypertrophied 1st metatarsal was resected dorsally, medially, and laterally. A power bur was used to make sure that there were no rough edges and also to further debride the hypertrophic 1st metatarsal and base of the proximal phalanx. Approximately one third of the dorsal first metatarsal was resected. Next, a rongeur was used to resect all hypertrophic base of the proximal phalanx. Moreover, the wound site was then flushed with copious amounts of sterile saline. Fluoroscopy was adequate resection of the osseous proliferation to the first metatarsal phalangeal joint. Attention was directed to the right hallux at the interphalangeal joint level through the same incision. The extensor hallucis longus tendon was retracted laterally, next the head of the proximal phalanx was resected with a sagittal saw blade. I sent the head of the proximal phalanx for gross and histopathology as well as microbiology studies, cutting the head of the proximal phalanx in half vertically prior to sending the specimen for pathology. There was no fragmentation of the bone, no erosions noted no severe signs of infection to the interphalangeal joint. I flushed the interphalangeal joint with 3L of sterile saline. I packed the dorsal aspect of both the metatarsal phalangeal joint and interphalangeal joint with Vancomycin infused Rivono Osteoset beads. Next, I drove a 0.062 K wire from the base of the distal phalanx exiting the hallux and retrograded through the proximal phalanx into the first metatars
[2022-04-23] MEDS: fentaNYL CITRATE INJ (*CRX) 100 MCG/2 ML VIAL 25 MCG IV PUSH ×4 (15:40→15:46)
[2022-04-23] MEDS: LACTATED RINGERS 1,000 ML 100 ML IV CONT (17:00)
[2022-04-23] MEDS: oxyCODONE/ACETAMINOPHEN (*CRX) 5-325 MG TABLET 1 TABLET PO (19:59)
--- NOTE | 2022-04-23 22:35 | PCCCNOTE ---
On 04/23/22, the student, Dodie Cuenca, provided care and completed [facility] documentation on this patient. I have reviewed the student's documentation and agree with the findings.
[2022-04-24] MEDS: oxyCODONE/ACETAMINOPHEN (*CRX) 5-325 MG TABLET 1 TABLET PO ×6 (00:03→20:49)
[2022-04-24 02:16] VITALS: BP 112/64; PULSE 73; RESP 16; TEMP 36.3; O2SAT 98
[2022-04-24 05:43] VITALS: BP 96/62; PULSE 64; RESP 16; TEMP 36.6; O2SAT 96
[2022-04-24 07:55] LABS: Basophils Absolute Auto 0.1 K/mm3 (0.0-0.1); Basophils Percent Auto 0.8 % (0.2-1.2); Eosinophils Absolute Auto 0.2 K/mm3 (0-0.3); Eosinophils Percent Auto 2.5 % (0-4.4); Hemoglobin 9.9 g/dL (14.0-18.0); Immature Granulocyte Absolute 0.04 K/mm3 (0.00-0.031); Immature Granulocyte Percent A 0.5 % (0-0.5); Lymphocytes Percent Auto 17.7 % (18.3-44.2); Mean Corpuscular Hemoglobin 31.8 pg (26-34); Mean Corpuscular Volume 96.5 fl (80-100); Mean Platelet Volume 11.6 fl (7.4-10.4); Monocytes Absolute Auto 0.9 K/mm3 (0.1-0.6); Monocytes Percent Auto 12.3 % (2.6-8.5); Neutrophils Absolute Auto 4.9 K/mm3 (1.3-6.7); Neutrophils Percent Auto 66.2 % (45.5-73.1); Platelet Count Result 183 k/mm3 (150-375); Red Blood Count 3.11 M/mm3 (4.6-6.20); Red Cell Distribution Width 13.6 % (11.5-14.5); White Blood Count 7.3 K/mm3 (4.5-10.0)
[2022-04-24 08:15] LABS: Anion Gap 6 mmol/L (8-16); Blood Urea Nitrogen 13 mg/dL (9-20); Calcium 8.6 mg/dL (8.4-10.2); Carbon Dioxide 22 mmol/L (22-30); Chloride 111 mmol/L (98-107); Estimated CRCL calculation 84 ml/min; Estimated Glomerular Filt Rate > 60; Glucose 105 mg/dL (65-110); Potassium 3.8 mmol/L (3.4-5.0); Sodium 139 mmol/L (137-145)
[2022-04-24] MEDS: ENOXAPARIN 40 MG/0.4 ML SYRINGE SUB-Q (09:09)
[2022-04-24] MEDS: FUROSEMIDE 20 MG TABLET PO (09:10)
--- NOTE | 2022-04-24 09:24 | PM.IMPN ---
Progress Note: A&P Assessment and Plan (1) Open wound of right great toe: Code(s): S91.101A - Unspecified open wound of right great toe without damage to nail, initial encounter Status: Acute Assessment and Plan: -No evidence of osteomyelitis on x-ray though wound does track to bone. -MRI unable to definitively exclude osteomyelitis -Hgb A1c 5.1 -Continue vanc and impenem -POD #1 s/p arthroplasty of R hallux w/ K wire fixation and cheilectomy of first MTP w/ Dr. Baez -duration of IV abx vs transition to oral abx per podiatry (2) Cellulitis of great toe of right foot: Code(s): L03.031 - Cellulitis of right toe Status: Acute Assessment and Plan: -Imipenem and vancomycin -BC NGTD (3) Peripheral neuropathy: Qualifiers: Peripheral neuropathy type: polyneuropathy, unspecified Qualified Code(s): G62.9 - Polyneuropathy, unspecified Code(s): G62.9 - Polyneuropathy, unspecified Status: Acute Assessment and Plan: -Idiopathic peripheral neuropathy per patient report. -hemoglobin A1c 5.1 (4) Hyperglycemia: Code(s): R73.9 - Hyperglycemia, unspecified Status: Acute Assessment and Plan: -Random glucose was 153 on arrival though he was recently on steroids. -hemoglobin A1c is 5.1 (5) Chronic kidney disease, stage 3: Code(s): N18.30 - Chronic kidney disease, stage 3 unspecified Status: Acute Assessment and Plan: -Creatinine is higher than baseline, likely due to poor oral intake the past couple of days. -Improving with IV hydration, was 1.8 down to 1.1 -Continue to monitor BMP (6) Benign essential hypertension: Code(s): I10 - Essential (primary) hypertension Status: Acute Assessment and Plan: -Blood pressures were reviewed and they are well controlled. -continue home meds (7) Rheumatoid arthritis: Qualifiers: Rheumatoid arthritis location: multiple sites Rheumatoid factor presence: unspecified presence Qualified Code(s): M06.9 - Rheumatoid arthritis, unspecified Code(s): M06.9 - Rheumatoid arthritis, unspecified Status: Acute Assessment and Plan: -No longer on methotrexate. Subjective Date/time seen: 04/24/22 09:24 Interval history: 62-year-old male with history of gout, rheumatoid arthritis, peripheral neuropathy, hypertension, and hyperlipidemia, admitted for R great toe ulcer. Pt went to OR yesterday and underwent arthroplasty of R hallux w/ K wire fixation and cheilectomy of first MTP. Did not have toe amputated after all. Pt is having significant pain in the toe whenever the pain medicine wears off. No cp/sob/n/v/abd pain. Review of Systems Review of Systems: All systems reviewed & are unremarkable except as noted in HPI and below Exam Narrative: General: Well-developed male sitting up in bed no distress. Weight: 113.5 kg. BMI: 32.1. HEENT: PERRL, EOMI. Sclerae anicteric. Moist mucous membranes. Neck: Supple. Respiratory: Lungs are clear to auscultation bilaterally. Cardiovascular: Regular rate and rhythm with S1-S2. Gastrointestinal: Abdomen is soft, nontender, and nondistended with positive bowel sounds. No organomegaly. Skin: Warm and dry. Dressing R foot c/d/i. Extremities: Moves all 4 extremities, no significant edema Neurological: Alert. Cranial nerves 2-12 are grossly intact. Decreased sensation in the lower legs from neuropathy. Psychiatric: Pleasant and cooperative with normal mood and affect. Judgment and insight intact. Objective Data Vital Signs Vital Signs: Vital Signs - 24 hr 04/23/22 11:22 04/23/22 14:30 04/23/22 14:45 Temperature 97.3 F L 97.2 F L Pulse Rate 66 55 L 79 Respiratory Rate 18 12 20 Blood Pressure 121/72 125/85 143/91 H Pulse Oximetry 99 100 98 Oxygen Delivery Room Air Simple Face Mask Room Air Oxygen Flow Rate 10 04/23/22 15:00 0
[2022-04-24 10:47] VITALS: BP 107/69; PULSE 69; RESP 20; TEMP 35.8; O2SAT 97
[2022-04-24] MEDS: POTASSIUM CHLORIDE 10 MEQ TABLET.ER PO (10:58)
[2022-04-24] MEDS: LOSARTAN POTASSIUM 100 MG TABLET PO (10:58)
[2022-04-24] MEDS: allopurinoL 300 MG TABLET PO ×2 (10:58→17:10)
[2022-04-24] MEDS: PANTOPRAZOLE 40 MG TABLET PO (10:58)
[2022-04-24] MEDS: FOLIC ACID 1 MG TABLET PO (10:58)
[2022-04-24] MEDS: OMEGA 3 POLYUNSAT FATTY ACIDS 1 GM CAP 2 GM PO ×2 (10:59→17:10)
[2022-04-24] MEDS: ATORVASTATIN 20 MG TABLET PO (10:59)
--- NOTE | 2022-04-24 11:00 | WPDPN ---
Progress Note: A&P Assessment and Plan (1) Right hallux osteomyelitis: Code(s): M86.9 - Osteomyelitis, unspecified Status: Acute (2) Rheumatoid arthritis: Qualifiers: Rheumatoid arthritis location: multiple sites Rheumatoid factor presence: unspecified presence Qualified Code(s): M06.9 - Rheumatoid arthritis, unspecified Code(s): M06.9 - Rheumatoid arthritis, unspecified Status: Acute (3) Cellulitis of great toe of right foot: Code(s): L03.031 - Cellulitis of right toe Status: Acute (4) Open wound of right great toe: Code(s): S91.101A - Unspecified open wound of right great toe without damage to nail, initial encounter Status: Acute Plan Neuropathic ulceration with cellulitis- I resected the interphalangeal joint deep to the ulceration and stabilized the joint with a k wire packed with Vancomycin antibiotic beads. Bone cultures and biopsy pending. Will likely require 4 weeks of IV abx via PICC, to cover organism/ susceptibility, discussed with internal medicine. I will change surgical dressing every other day. Once discharged he will follow up in my office 3 days post discharge to continue to evaluate. I did explain that the toe salvage procedure may not be successful, he understands that an amputation may be inevitable. Both the patient and are agreeable to plan. Additional Plan will continue to follow patient until discharged Time Spent With Patient Time: 15 minutes Subjective Date/time seen: 04/24/22 11:00 Review of Systems Review of Systems: 1 day s/p attempted salvage procedure of the hallux with arthroplasty of the interphalangeal joint with cheilectomy of the severely arthritic first metatarsal phalangeal joint. I did pack the plangtar and dorsal aspect of the interphalangeal joint and dorsal first metatarsal phalangeal joint with Vancomycin infused antibiotic beads. Constitutional: Comments: Relates pressure to foot over night. Managed with pain medication. No F/C/N/V. Exam Skin: Other: Incision site to the dorsum of the right foot is coapting nicely. Significant reduction in Erythema. Significant edema still present. No calor present. Objective Data Vital Signs Vital Signs: Vital Signs - 24 hr 04/23/22 11:22 04/23/22 14:30 04/23/22 14:45 Temperature 36.3 C L 36.2 C L Pulse Rate 66 55 L 79 Respiratory Rate 18 12 20 Blood Pressure 121/72 125/85 143/91 H Pulse Oximetry 99 100 98 Oxygen Delivery Room Air Simple Face Mask Room Air Oxygen Flow Rate 10 04/23/22 15:00 04/23/22 15:15 04/23/22 15:50 Temperature 36.8 C Pulse Rate 67 60 55 L Respiratory Rate 13 18 16 Blood Pressure 136/92 H 126/79 113/75 Pulse Oximetry 100 100 98 Oxygen Delivery Room Air Room Air Oxygen Flow Rate 04/23/22 16:31 04/23/22 16:46 04/23/22 17:16 Temperature 36.8 C 36.5 C 36.8 C Pulse Rate 52 L 63 72 Respiratory Rate 16 18 16 Blood Pressure 110/73 124/68 121/80 Pulse Oximetry 98 99 100 Oxygen Delivery Oxygen Flow Rate 04/23/22 18:16 04/23/22 21:46 04/24/22 02:16 Temperature 36.6 C 36.2 C L 36.3 C L Pulse Rate 80 81 73 Respiratory Rate 16 16 16 Blood Pressure 125/82 116/74 112/64 Pulse Oximetry 97 96 98 Oxygen Delivery Oxygen Flow Rate 04/24/22 05:43 04/24/22 10:47 Temperature 36.6 C 35.8 C L Pulse Rate 64 69 Respiratory Rate 16 20 Blood Pressure 96/62 L 107/69 Pulse Oximetry 96 97 Oxygen Delivery Oxygen Flow Rate Intake/Output Intake/Output: Intake & Output 04/21/22 04/22/22 04/23/22 04/24/22 23:59 23:59 23:59 23:59 Intake Total 2100 3870 2550 1986 Output Total 4431 2150 800 Balance 2100 0954 965 7068 Meds/Results Medications: Active Medications Generic Name Dose Route Start Last Admin Trade Name Freq PRN Reason Stop Dose Admin Acyclovir 400 mg 04/23/22 15:50 Acyclovir 400 Mg Tablet PO TID PRN cold sores Allopurinol 300 mg 04/24/22 10:20 04/24/22 10:58 A
[2022-04-24 13:53] VITALS: BP 113/72; PULSE 78; RESP 18; TEMP 35.7; O2SAT 100
[2022-04-24] MEDS: HYDROmorphone HCL INJ (*CRX) 1 MG/ML SYR IV PUSH ×2 (17:33→21:54)
[2022-04-24 21:46] VITALS: BP 108/66; PULSE 72; RESP 17; TEMP 36.4; O2SAT 93
[2022-04-25] MEDS: oxyCODONE/ACETAMINOPHEN (*CRX) 5-325 MG TABLET 1 TABLET PO ×4 (01:12→20:52)
[2022-04-25 02:19] LABS: Basophils Absolute Auto 0.1 K/mm3 (0.0-0.1); Basophils Percent Auto 0.7 % (0.2-1.2); Eosinophils Absolute Auto 0.3 K/mm3 (0-0.3); Eosinophils Percent Auto 4.3 % (0-4.4); Hematocrit 29.3 % (42.0-52.0); Hemoglobin 9.3 g/dL (14.0-18.0); Immature Granulocyte Absolute 0.05 K/mm3 (0.00-0.031); Immature Granulocyte Percent A 0.7 % (0-0.5); Lymphocytes Absolute Auto 1.36 K/mm3 (0.9-3.2); Lymphocytes Percent Auto 20.3 % (18.3-44.2); Mean Corpuscular HGB Conc 31.7 g/dl (32-36); Mean Corpuscular Hemoglobin 31.4 pg (26-34); Mean Platelet Volume 11.3 fl (7.4-10.4); Monocytes Absolute Auto 0.7 K/mm3 (0.1-0.6); Monocytes Percent Auto 10.5 % (2.6-8.5); Neutrophils Absolute Auto 4.2 K/mm3 (1.3-6.7); Neutrophils Percent Auto 63.5 % (45.5-73.1); Platelet Count Result 162 k/mm3 (150-375); Red Blood Count 2.96 M/mm3 (4.6-6.20); Red Cell Distribution Width 13.7 % (11.5-14.5); White Blood Count 6.7 K/mm3 (4.5-10.0)
[2022-04-25 02:28] LABS: Anion Gap 8 mmol/L (8-16); Blood Urea Nitrogen 13 mg/dL (9-20); Calcium 8.6 mg/dL (8.4-10.2); Carbon Dioxide 21 mmol/L (22-30); Chloride 106 mmol/L (98-107); Estimated CRCL calculation 77 ml/min; Estimated Glomerular Filt Rate > 60; Glucose 104 mg/dL (65-110); Sodium 135 mmol/L (137-145)
[2022-04-25 02:47] LABS: Vancomycin Trough 14.4 ug/mL (10.0-20.0)
[2022-04-25] MEDS: HYDROmorphone HCL INJ (*CRX) 1 MG/ML SYR IV PUSH ×3 (03:44→17:02)
[2022-04-25 05:58] VITALS: BP 111/64; PULSE 79; RESP 18; TEMP 36.5; O2SAT 94
[2022-04-25] MEDS: FUROSEMIDE 20 MG TABLET PO (08:20)
[2022-04-25] MEDS: OMEGA 3 POLYUNSAT FATTY ACIDS 1 GM CAP 2 GM PO ×2 (08:20→17:03)
[2022-04-25] MEDS: POTASSIUM CHLORIDE 10 MEQ TABLET.ER PO (08:20)
[2022-04-25] MEDS: FOLIC ACID 1 MG TABLET PO (08:20)
[2022-04-25] MEDS: allopurinoL 300 MG TABLET PO ×2 (08:20→17:03)
[2022-04-25] MEDS: PANTOPRAZOLE 40 MG TABLET PO (08:20)
[2022-04-25] MEDS: LOSARTAN POTASSIUM 100 MG TABLET PO (08:20)
[2022-04-25] MEDS: ATORVASTATIN 20 MG TABLET PO (08:20)
[2022-04-25] MEDS: ENOXAPARIN 40 MG/0.4 ML SYRINGE SUB-Q (08:21)
--- NOTE | 2022-04-25 12:24 | PM.IMPN ---
Progress Note: A&P Assessment and Plan (1) Open wound of right great toe: Code(s): S91.101A - Unspecified open wound of right great toe without damage to nail, initial encounter Status: Acute Assessment and Plan: -No evidence of osteomyelitis on x-ray though wound does track to bone. -MRI unable to definitively exclude osteomyelitis -Hgb A1c 5.1 -Continue vanc and impenem -POD #2 s/p arthroplasty of R hallux w/ K wire fixation and cheilectomy of first MTP w/ Dr. Baez -will plan for outpatient IV abx for total of 4 weeks per podiatry (2) Cellulitis of great toe of right foot: Code(s): L03.031 - Cellulitis of right toe Status: Acute Assessment and Plan: -Imipenem and vancomycin -BC NGTD (3) Peripheral neuropathy: Qualifiers: Peripheral neuropathy type: polyneuropathy, unspecified Qualified Code(s): G62.9 - Polyneuropathy, unspecified Code(s): G62.9 - Polyneuropathy, unspecified Status: Acute Assessment and Plan: -Idiopathic peripheral neuropathy per patient report. -hemoglobin A1c 5.1 (4) Hyperglycemia: Code(s): R73.9 - Hyperglycemia, unspecified Status: Acute Assessment and Plan: -Random glucose was 153 on arrival though he was recently on steroids. -hemoglobin A1c is 5.1 (5) Chronic kidney disease, stage 3: Code(s): N18.30 - Chronic kidney disease, stage 3 unspecified Status: Acute Assessment and Plan: -Creatinine is higher than baseline, likely due to poor oral intake the past couple of days. -Improving with IV hydration, was 1.8 down to 1.2 -Continue to monitor BMP (6) Benign essential hypertension: Code(s): I10 - Essential (primary) hypertension Status: Acute Assessment and Plan: -Blood pressures were reviewed and they are well controlled. -continue home meds (7) Rheumatoid arthritis: Qualifiers: Rheumatoid arthritis location: multiple sites Rheumatoid factor presence: unspecified presence Qualified Code(s): M06.9 - Rheumatoid arthritis, unspecified Code(s): M06.9 - Rheumatoid arthritis, unspecified Status: Acute Assessment and Plan: -No longer on methotrexate. Subjective Date/time seen: 04/25/22 12:24 Interval history: 62-year-old male with history of gout, rheumatoid arthritis, peripheral neuropathy, hypertension, and hyperlipidemia, admitted for R great toe ulcer. POD 2 s/p arthroplasty of R hallux w/ K wire fixation and cheilectomy of first MTP. Pain is more controlled today. No cp/sob/n/v/abd pain. Review of Systems Review of Systems: All systems reviewed & are unremarkable except as noted in HPI and below Exam Narrative: General: Well-developed male sitting up in bed no distress. Weight: 113.5 kg. BMI: 32.1. HEENT: PERRL, EOMI. Sclerae anicteric. Moist mucous membranes. Neck: Supple. Respiratory: Lungs are clear to auscultation bilaterally. Cardiovascular: Regular rate and rhythm with S1-S2. Gastrointestinal: Abdomen is soft, nontender, and nondistended with positive bowel sounds. No organomegaly. Skin: Warm and dry. Dressing R foot c/d/i. Extremities: Moves all 4 extremities, no significant edema Neurological: Alert. Cranial nerves 2-12 are grossly intact. Decreased sensation in the lower legs from neuropathy. Psychiatric: Pleasant and cooperative with normal mood and affect. Judgment and insight intact. Objective Data Vital Signs Vital Signs: Vital Signs - 24 hr 04/24/22 13:53 04/24/22 21:46 04/25/22 05:58 Temperature 96.3 F L 97.5 F L 97.7 F Pulse Rate 78 72 79 Respiratory Rate 18 17 18 Blood Pressure 113/72 108/66 111/64 Pulse Oximetry 100 93 94 Oxygen Delivery 04/25/22 08:20 Temperature Pulse Rate Respiratory Rate Blood Pressure Pulse Oximetry Oxygen Delivery Room Air Intake/Output Intake/Output: Intake & Output 06
[2022-04-25 21:38] VITALS: BP 109/61; PULSE 80; RESP 16; TEMP 36.6; O2SAT 98
[2022-04-26] MEDS: oxyCODONE/ACETAMINOPHEN (*CRX) 5-325 MG TABLET 1 TABLET PO ×2 (03:18→14:21)
[2022-04-26 05:40] VITALS: O2SAT 97
[2022-04-26 05:48] VITALS: BP 108/68; PULSE 73; RESP 18; TEMP 36.2; O2SAT 95
[2022-04-26 06:51] LABS: Basophils Absolute Auto 0.1 K/mm3 (0.0-0.1); Basophils Percent Auto 0.8 % (0.2-1.2); Eosinophils Absolute Auto 0.3 K/mm3 (0-0.3); Eosinophils Percent Auto 4.9 % (0-4.4); Hematocrit 29.7 % (42.0-52.0); Hemoglobin 9.4 g/dL (14.0-18.0); Immature Granulocyte Absolute 0.09 K/mm3 (0.00-0.031); Immature Granulocyte Percent A 1.4 % (0-0.5); Lymphocytes Absolute Auto 1.16 K/mm3 (0.9-3.2); Lymphocytes Percent Auto 17.8 % (18.3-44.2); Mean Corpuscular HGB Conc 31.6 g/dl (32-36); Mean Corpuscular Hemoglobin 31.8 pg (26-34); Mean Corpuscular Volume 100.3 fl (80-100); Mean Platelet Volume 11.8 fl (7.4-10.4); Monocytes Absolute Auto 0.6 K/mm3 (0.1-0.6); Monocytes Percent Auto 9.8 % (2.6-8.5); Neutrophils Absolute Auto 4.3 K/mm3 (1.3-6.7); Neutrophils Percent Auto 65.3 % (45.5-73.1); Platelet Count Result 164 k/mm3 (150-375); Red Blood Count 2.96 M/mm3 (4.6-6.20); Red Cell Distribution Width 13.6 % (11.5-14.5); White Blood Count 6.5 K/mm3 (4.5-10.0)
[2022-04-26 06:57] LABS: Anion Gap 5 mmol/L (8-16); Blood Urea Nitrogen 11 mg/dL (9-20); Calcium 8.8 mg/dL (8.4-10.2); Carbon Dioxide 24 mmol/L (22-30); Chloride 107 mmol/L (98-107); Estimated CRCL calculation 84 ml/min; Estimated Glomerular Filt Rate > 60; Glucose 135 mg/dL (65-110); Potassium 3.6 mmol/L (3.4-5.0); Sodium 136 mmol/L (137-145)
[2022-04-26] MEDS: ceFAZolin 2 GM/D5W 50 ML 2 GM/50 ML BAG IVPB ×3 (08:45→23:11)
[2022-04-26] MEDS: FOLIC ACID 1 MG TABLET PO (08:52)
[2022-04-26] MEDS: OMEGA 3 POLYUNSAT FATTY ACIDS 1 GM CAP 2 GM PO ×2 (08:53→17:17)
[2022-04-26] MEDS: LOSARTAN POTASSIUM 100 MG TABLET PO (08:53)
[2022-04-26] MEDS: ATORVASTATIN 20 MG TABLET PO (08:54)
[2022-04-26] MEDS: ACYCLOVIR 400 MG TABLET PO (08:54)
[2022-04-26] MEDS: allopurinoL 300 MG TABLET PO ×2 (08:54→17:17)
[2022-04-26] MEDS: PANTOPRAZOLE 40 MG TABLET PO (08:54)
[2022-04-26] MEDS: POTASSIUM CHLORIDE 10 MEQ TABLET.ER PO (08:56)
[2022-04-26] MEDS: ENOXAPARIN 40 MG/0.4 ML SYRINGE SUB-Q (08:56)
[2022-04-26] MEDS: HYDROmorphone HCL INJ (*CRX) 1 MG/ML SYR IV PUSH ×2 (08:56→20:18)
[2022-04-26] MEDS: FUROSEMIDE 20 MG TABLET PO (08:56)
--- NOTE | 2022-04-26 09:15 | PM.IMPN ---
Progress Note: A&P Assessment and Plan (1) Open wound of right great toe: Code(s): S91.101A - Unspecified open wound of right great toe without damage to nail, initial encounter Status: Acute Assessment and Plan: -No evidence of osteomyelitis on x-ray though wound does track to bone. -MRI unable to definitively exclude osteomyelitis -Hgb A1c 5.1 -Was on vanc and impenem, pharmacist called and recommended de escalating to Ancef based on culture report -POD #3 s/p arthroplasty of R hallux w/ K wire fixation and cheilectomy of first MTP w/ Dr. Baez -will plan for outpatient IV abx for total of 4 weeks per podiatry, PICC line today (2) Cellulitis of great toe of right foot: Code(s): L03.031 - Cellulitis of right toe Status: Acute Assessment and Plan: -Imipenem and vancomycin switched to Ancef based on culture results -BC NGTD (3) Peripheral neuropathy: Qualifiers: Peripheral neuropathy type: polyneuropathy, unspecified Qualified Code(s): G62.9 - Polyneuropathy, unspecified Code(s): G62.9 - Polyneuropathy, unspecified Status: Acute Assessment and Plan: -Idiopathic peripheral neuropathy per patient report. -hemoglobin A1c 5.1 (4) Hyperglycemia: Code(s): R73.9 - Hyperglycemia, unspecified Status: Acute Assessment and Plan: -Random glucose was 153 on arrival though he was recently on steroids. -hemoglobin A1c is 5.1 (5) Chronic kidney disease, stage 3: Code(s): N18.30 - Chronic kidney disease, stage 3 unspecified Status: Acute Assessment and Plan: -Creatinine is higher than baseline, likely due to poor oral intake the past couple of days. -Improving with IV hydration, was 1.8 down to 1.1 -Continue to monitor BMP (6) Benign essential hypertension: Code(s): I10 - Essential (primary) hypertension Status: Acute Assessment and Plan: -Blood pressures were reviewed and they are well controlled. -continue home meds (7) Rheumatoid arthritis: Qualifiers: Rheumatoid arthritis location: multiple sites Rheumatoid factor presence: unspecified presence Qualified Code(s): M06.9 - Rheumatoid arthritis, unspecified Code(s): M06.9 - Rheumatoid arthritis, unspecified Status: Acute Assessment and Plan: -No longer on methotrexate. Subjective Date/time seen: 04/26/22 09:15 Interval history: 62-year-old male with history of gout, rheumatoid arthritis, peripheral neuropathy, hypertension, and hyperlipidemia, admitted for R great toe ulcer. POD 3 s/p arthroplasty of R hallux w/ K wire fixation and cheilectomy of first MTP. Pain is controlled today. No cp/sob/n/v/abd pain. Review of Systems Review of Systems: All systems reviewed & are unremarkable except as noted in HPI and below Exam Narrative: General: Well-developed male sitting up in bed no distress. Weight: 113.5 kg. BMI: 32.1. HEENT: PERRL, EOMI. Sclerae anicteric. Moist mucous membranes. Neck: Supple. Respiratory: Lungs are clear to auscultation bilaterally. Cardiovascular: Regular rate and rhythm with S1-S2. Gastrointestinal: Abdomen is soft, nontender, and nondistended with positive bowel sounds. No organomegaly. Skin: Warm and dry. Dressing R foot c/d/i. Extremities: Moves all 4 extremities, no significant edema Neurological: Alert. Cranial nerves 2-12 are grossly intact. Decreased sensation in the lower legs from neuropathy. Psychiatric: Pleasant and cooperative with normal mood and affect. Judgment and insight intact. Objective Data Vital Signs Vital Signs: Vital Signs - 24 hr 04/25/22 21:38 04/26/22 05:40 04/26/22 05:48 Temperature 97.8 F 97.2 F L Pulse Rate 80 73 Respiratory Rate 16 18 Blood Pressure 109/61 108/68 Pulse Oximetry 98 97 95 Oxygen Delivery Room Air Intake/Output Intake/Output: Intake & Output 06
[2022-04-26] MEDS: LIDOCAINE HCL 1% PF INJ 5 ML VIAL INFILTRATE (11:00)
--- NOTE | 2022-04-26 11:08 | WPDPN ---
Progress Note: A&P Assessment and Plan (1) Right hallux osteomyelitis: Code(s): M86.9 - Osteomyelitis, unspecified Status: Acute (2) Cellulitis of great toe of right foot: Code(s): L03.031 - Cellulitis of right toe Status: Acute (3) Gouty arthritis: Code(s): M10.9 - Gout, unspecified Status: Acute (4) Pain and swelling of toe of right foot: Code(s): M79.674 - Pain in right toe(s); M79.89 - Other specified soft tissue disorders Status: Acute Plan The patient will go home on IV Abx for suspected osteomyelitis awaiting path report and micro report Home health ordered for daily dressing changes. Aquacell AG to plantar ulcer and betadine and gauze to the dorsal incision. Minimal ambulation at home with surgical shoe and stockinette Follow up in my office 3 days after discharged. Subjective Date/time seen: 04/26/22 11:08 3 days s/p arthroplasty of the right hallux interphalangeal joint and cheilectomy of the first metatarsal phalangeal joint with packing with antibiotic beads. No F/C/N/V/SOB. Relates that his foot pain is improving significantly. Exam Skin: Wounds: wounds noted (Plantar ulceration already granulating nicely, measuring 1cm in diameter. ) right dorsal great toe drainage, sutures and other (Erythema to the entire hallux resolving. Significant edema present to the entire right hallux. Drainage from the dorsal incision sill noted from the antibiotic beads. ) Extrem: Other: Rectus alightment of the right halluxn noticeably shorter since resecting the interphalangeal joint. Objective Data Vital Signs Vital Signs: Vital Signs - 24 hr 04/25/22 21:38 04/26/22 05:40 04/26/22 05:48 Temperature 36.6 C 36.2 C L Pulse Rate 80 73 Respiratory Rate 16 18 Blood Pressure 109/61 108/68 Pulse Oximetry 98 97 95 Oxygen Delivery Room Air 04/26/22 08:55 Temperature Pulse Rate Respiratory Rate Blood Pressure Pulse Oximetry Oxygen Delivery Room Air Intake/Output Intake/Output: Intake & Output 04/23/22 04/24/22 04/25/22 04/26/22 23:59 23:59 23:59 23:59 Intake Total 4800 2056 2068 1036 Output Total 2150 1700 1800 800 Balance 400 1566 268 236 Meds/Results Medications: Active Medications Generic Name Dose Route Start Last Admin Trade Name Freq PRN Reason Stop Dose Admin Acyclovir 400 mg 04/23/22 15:50 04/26/22 08:54 Acyclovir 400 Mg Tablet PO 400 mg TID PRN Administration cold sores Allopurinol 300 mg 04/24/22 10:20 04/26/22 08:54 Allopurinol 300 Mg Tablet PO 300 mg BID [place] Administration Atorvastatin Calcium 20 mg 04/24/22 10:20 04/26/22 08:54 Atorvastatin 20 Mg Tablet PO 20 mg DAILY [place] Administration Enoxaparin Sodium 40 mg 04/24/22 09:00 04/26/22 08:56 Enoxaparin 40 Mg/0.4 Ml Syringe SUB-Q 40 mg DAILY [place] Administration Fish Oil 2 gm 04/24/22 10:20 04/26/22 08:53 Catherine 3 Polyunsat Fatty Acids 1 Gm Cap PO 2 gm BID [place] Administration Folic Acid 1 mg 04/24/22 10:20 04/26/22 08:52 Folic Acid 1 Mg Tablet PO 1 mg DAILY [place] Administration Furosemide 20 mg 04/24/22 09:00 04/26/22 08:56 Furosemide 20 Mg Tablet PO 20 mg QAM [place] Administration Guaifenesin/Dextromethorphan 1 tab 04/23/22 15:50 Guaifenesin 600 Mg/Dextromethorphan 30 Mg Sr Tab 12 Hr PO Q12H PRN Cough Hydromorphone HCl 1 mg 04/24/22 16:37 04/26/22 08:56 Hydromorphone Hcl Inj (*Crx) 1 Mg/Ml Syr IV PUSH 1 mg Q4H PRN Administration Pain Rated 7-10 Cefazolin Sodium 2 gm in 50 mls @ 100 mls/hr 04/26/22 08:00 04/26/22 09:15 Ancef 2 Gm/D5w 50 Ml IVPB Infused Q8H [place] Infusion Losartan Potassium 100 mg 04/24/22 10:20 04/26/22 08:53 Losartan Potassium 100 Mg Tablet PO 100 mg DAILY [place] Administration Oxycodone/Acetaminophen 1 tablet 04/23/22 19:32 04/26/22 03:18 Oxycodone/Acetaminophen (*Crx) 5-325 Mg Tablet PO 1 tablet Q4H PRN Admini
[2022-04-26 14:00] VITALS: BP 104/64; PULSE 72; RESP 16; TEMP 36.4; O2SAT 97
[2022-04-26] MEDS: CENTRAL LINE FLUSH 10 ML IV PUSH ×2 (14:24→21:37)
[2022-04-26 16:07] LABS: Vancomycin Trough 23.3 ug/mL (10.0-20.0)
[2022-04-27] MEDS: CENTRAL LINE FLUSH 10 ML IV PUSH ×2 (05:52→15:18)
[2022-04-27 06:08] LABS: Potassium 4.5 mmol/L (3.4-5.0)
[2022-04-27 08:00] VITALS: O2SAT 99
[2022-04-27] MEDS: ATORVASTATIN 20 MG TABLET PO (08:40)
[2022-04-27] MEDS: allopurinoL 300 MG TABLET PO (08:40)
[2022-04-27] MEDS: LOSARTAN POTASSIUM 100 MG TABLET PO (08:40)
[2022-04-27] MEDS: OMEGA 3 POLYUNSAT FATTY ACIDS 1 GM CAP 2 GM PO (08:40)
[2022-04-27] MEDS: PANTOPRAZOLE 40 MG TABLET PO (08:40)
[2022-04-27] MEDS: POTASSIUM CHLORIDE 10 MEQ TABLET.ER PO (08:40)
[2022-04-27] MEDS: FUROSEMIDE 20 MG TABLET PO (08:40)
[2022-04-27] MEDS: FOLIC ACID 1 MG TABLET PO (08:40)
[2022-04-27] MEDS: ceFAZolin 2 GM/D5W 50 ML 2 GM/50 ML BAG IVPB ×2 (08:41→16:18)
--- NOTE | 2022-04-27 09:44 | PM.DS ---
DS: Admitting Diagnosis Discharge Date 04/27/22 Admitting Diagnosis toe wound DS: Discharge Diagnosis Discharge Diagnosis (1) Open wound of right great toe: Code(s): S91.101A - Unspecified open wound of right great toe without damage to nail, initial encounter Status: Acute Assessment and Plan: -No evidence of osteomyelitis on x-ray though wound does track to bone. -MRI unable to definitively exclude osteomyelitis -Hgb A1c 5.1 -Was on vanc and impenem, pharmacist called and recommended de escalating to Ancef based on culture report -POD #4 s/p arthroplasty of R hallux w/ K wire fixation and cheilectomy of first MTP w/ Dr. Baez -will plan for outpatient IV abx for total of 4 weeks per podiatry, PICC line inserted yesterday -bone biopsy pending -f/u with podiatry in 3 days (2) Cellulitis of great toe of right foot: Code(s): L03.031 - Cellulitis of right toe Status: Acute Assessment and Plan: -Imipenem and vancomycin switched to Ancef based on culture results - NGTD (3) Peripheral neuropathy: Qualifiers: Peripheral neuropathy type: polyneuropathy, unspecified Qualified Code(s): G62.9 - Polyneuropathy, unspecified Code(s): G62.9 - Polyneuropathy, unspecified Status: Acute Assessment and Plan: -Idiopathic peripheral neuropathy -hemoglobin A1c 5.1 (4) Hyperglycemia: Code(s): R73.9 - Hyperglycemia, unspecified Status: Acute Assessment and Plan: -Random glucose was 153 on arrival though he was recently on steroids. -hemoglobin A1c is 5.1 (5) Chronic kidney disease, stage 3: Code(s): N18.30 - Chronic kidney disease, stage 3 unspecified Status: Acute Assessment and Plan: -Creatinine is higher than baseline, likely due to poor oral intake the past couple of days. -Improving with IV hydration, was 1.8 down to 1.1 (6) Benign essential hypertension: Code(s): I10 - Essential (primary) hypertension Status: Acute Assessment and Plan: -Blood pressures were reviewed and they are well controlled. -continued home meds (7) Rheumatoid arthritis: Qualifiers: Rheumatoid arthritis location: multiple sites Rheumatoid factor presence: unspecified presence Qualified Code(s): M06.9 - Rheumatoid arthritis, unspecified Code(s): M06.9 - Rheumatoid arthritis, unspecified Status: Acute Assessment and Plan: -No longer on methotrexate. DS: Summary Hospital Course Reason for hospitalization: 62-year-old male with history of gout, rheumatoid arthritis, peripheral neuropathy, hypertension, and hyperlipidemia, admitted for R great toe ulcer. Please see HPI for further details. Hospital Course: Please see above for details of hospital course. Status at Discharge Cognitive/behavioral status at discharge: stable Functional status at discharge: independent ambulation Overall status at discharge: patient is progressing back to baseline Time Spent with Patient Time attestation: Total time spent providing and/or coordinating discharge services: Time spent: Greater than 30 minutes Exam Narrative: General: Well-developed male sitting up in bed no distress. Weight: 113.5 kg. BMI: 32.1. HEENT: PERRL, EOMI. Sclerae anicteric. Moist mucous membranes. Neck: Supple. Respiratory: Lungs are clear to auscultation bilaterally. Cardiovascular: Regular rate and rhythm with S1-S2. Gastrointestinal: Abdomen is soft, nontender, and nondistended with positive bowel sounds. No organomegaly. Skin: Warm and dry. Dressing R foot c/d/i. Extremities: Moves all 4 extremities, no significant edema Neurological: Alert. Cranial nerves 2-12 are grossly intact. Decreased sensation in the lower legs from neuropathy. Psychiatric: Pleasant and cooperative with normal mood and affect. Judgment and insight intact. DS: Data Data Complete
[2022-04-27 14:00] VITALS: BP 96/70; PULSE 77; RESP 14; TEMP 36.4; O2SAT 99
[2022-04-27 14:42] VITALS: O2SAT 97
[2022-04-27] MEDS: oxyCODONE/ACETAMINOPHEN (*CRX) 5-325 MG TABLET 1 TABLET PO (15:16)
== END 2022-04-27 17:10 | disposition home health service (06) | DRG 505 ==
LOC: ANHED 15:47 → ANH3MEDSUR 16:42
PROVIDERS: Physician Assistant; Podiatrist Foot & Ankle Surgery; Admitting Provider Internal Medicine; Emergency Provider Emergency Medicine; PCP Internal Medicine; Visit Provider Physician Assistant
PROC: 0QBN0ZZ Excision of Right Metatarsal, Open Approach (ICD-10-PCS; principal; 2022-04-23 12:30)
DX: M86.171 Other acute osteomyelitis, right ankle and foot (principal); S91.101A Unspecified open wound of right great toe without damage to nail, initial encounter; L03.031 Cellulitis of right toe; G62.9 Polyneuropathy, unspecified; R73.9 Hyperglycemia, unspecified; N18.30 Chronic kidney disease, stage 3 unspecified; I12.9 Hypertensive chronic kidney disease with stage 1 through stage 4 chronic kidney disease, or unspecified chronic kidney disease; M06.9 Rheumatoid arthritis, unspecified; Z87.891 Personal history of nicotine dependence; Z79.899 Other long term (current) drug therapy; Z79.52 Long term (current) use of systemic steroids; E78.5 Hyperlipidemia, unspecified; E53.8 Deficiency of other specified B group vitamins; E55.9 Vitamin D deficiency, unspecified; F41.9 Anxiety disorder, unspecified
CPT/HCPCS: 36415; 36569; 73630; 73720; 80048; 80053; 80202; 81003; 83036; 83605; 83735; 84132; 84550; 85025; 85610; 85652; 85730; 86140; 87040; 87070; 87075; 87076; 87147; 87181; 87186; 87205; 88305; 88309; 88311; 96361; 96365; 96366; 96367; 99285; A9270; A9577; C1713; C1751; G0378; J0690; J0743; J1170; J1650; J2250; J2405; J2543; J2704; J3010; J3370; J7030; J7120

== ENCOUNTER 2022-05-31 10:41 | Outpatient (RCR) | payer OTHER, SELFPAY ==
[2022-04-28 11:16] LABS: Basophils Absolute Auto 0.1 K/mm3 (0.0-0.1); Basophils Percent Auto 1.4 % (0.2-1.2); Eosinophils Absolute Auto 0.3 K/mm3 (0-0.3); Eosinophils Percent Auto 4.5 % (0-4.4); Hematocrit 32.5 % (42.0-52.0); Hemoglobin 10.6 g/dL (14.0-18.0); Immature Granulocyte Absolute 0.07 K/mm3 (0.00-0.031); Immature Granulocyte Percent A 1.1 % (0-0.5); Lymphocytes Absolute Auto 1.06 K/mm3 (0.9-3.2); Lymphocytes Percent Auto 16.9 % (18.3-44.2); Mean Corpuscular HGB Conc 32.6 g/dl (32-36); Mean Corpuscular Hemoglobin 31.5 pg (26-34); Mean Corpuscular Volume 96.7 fl (80-100); Mean Platelet Volume 12.8 fl (7.4-10.4); Monocytes Absolute Auto 0.7 K/mm3 (0.1-0.6); Monocytes Percent Auto 10.8 % (2.6-8.5); Neutrophils Absolute Auto 4.1 K/mm3 (1.3-6.7); Neutrophils Percent Auto 65.3 % (45.5-73.1); Platelet Count Result 242 k/mm3 (150-375); Red Blood Count 3.36 M/mm3 (4.6-6.20); Red Cell Distribution Width 13.8 % (11.5-14.5); White Blood Count 6.3 K/mm3 (4.5-10.0)
[2022-04-28 11:33] LABS: Alanine Aminotransferase 23 U/L (6-50); Albumin Level 4.1 g/dL (3.5-5.1); Alkaline Phosphatase 61 U/L (38-126); Anion Gap 11 mmol/L (8-16); Aspartate Amino Transferase 47 U/L (17-59); Bilirubin,Total 0.6 mg/dL (0.2-1.3); Blood Urea Nitrogen 10 mg/dL (9-20); CRP 3.4 mg/dL (<1.0); Calcium 9.4 mg/dL (8.4-10.2); Carbon Dioxide 23 mmol/L (22-30); Chloride 107 mmol/L (98-107); Estimated Glomerular Filt Rate > 60; Glucose 96 mg/dL (65-110); Potassium 4.2 mmol/L (3.4-5.0); Sodium 141 mmol/L (137-145)
[2022-04-28 13:00] LABS: Erythrocyte Sedimentation Rate 108 mm/hr (0-20)
[2022-05-03 12:58] LABS: Basophils Absolute Auto 0.1 K/mm3 (0.0-0.1); Basophils Percent Auto 1.1 % (0.2-1.2); Eosinophils Absolute Auto 0.2 K/mm3 (0-0.3); Hematocrit 31.3 % (42.0-52.0); Immature Granulocyte Absolute 0.02 K/mm3 (0.00-0.031); Immature Granulocyte Percent A 0.3 % (0-0.5); Lymphocytes Absolute Auto 1.37 K/mm3 (0.9-3.2); Lymphocytes Percent Auto 18.1 % (18.3-44.2); Mean Corpuscular HGB Conc 31.9 g/dl (32-36); Mean Corpuscular Hemoglobin 31.3 pg (26-34); Mean Corpuscular Volume 98.1 fl (80-100); Mean Platelet Volume 12.1 fl (7.4-10.4); Monocytes Absolute Auto 0.6 K/mm3 (0.1-0.6); Monocytes Percent Auto 8.5 % (2.6-8.5); Neutrophils Absolute Auto 5.3 K/mm3 (1.3-6.7); Platelet Count Result 239 k/mm3 (150-375); Red Blood Count 3.19 M/mm3 (4.6-6.20); Red Cell Distribution Width 13.7 % (11.5-14.5); White Blood Count 7.6 K/mm3 (4.5-10.0)
[2022-05-03 13:13] LABS: Alanine Aminotransferase 10 U/L (6-50); Albumin Level 3.9 g/dL (3.5-5.1); Alkaline Phosphatase 65 U/L (38-126); Anion Gap 8 mmol/L (8-16); Aspartate Amino Transferase 35 U/L (17-59); Bilirubin,Total 0.6 mg/dL (0.2-1.3); Blood Urea Nitrogen 15 mg/dL (9-20); CRP 3.1 mg/dL (<1.0); Calcium 9.2 mg/dL (8.4-10.2); Carbon Dioxide 24 mmol/L (22-30); Chloride 107 mmol/L (98-107); Estimated Glomerular Filt Rate > 60; Glucose 84 mg/dL (65-110); Sodium 139 mmol/L (137-145)
[2022-05-03 14:44] LABS: Erythrocyte Sedimentation Rate 106 mm/hr (0-20)
[2022-05-11 11:10] LABS: Basophils Absolute Auto 0.1 K/mm3 (0.0-0.1); Basophils Percent Auto 1.6 % (0.2-1.2); Eosinophils Absolute Auto 0.2 K/mm3 (0-0.3); Eosinophils Percent Auto 4.2 % (0-4.4); Hematocrit 33.3 % (42.0-52.0); Hemoglobin 10.6 g/dL (14.0-18.0); Immature Granulocyte Absolute 0.02 K/mm3 (0.00-0.031); Immature Granulocyte Percent A 0.4 % (0-0.5); Lymphocytes Absolute Auto 1.24 K/mm3 (0.9-3.2); Lymphocytes Percent Auto 27.5 % (18.3-44.2); Mean Corpuscular HGB Conc 31.8 g/dl (32-36); Mean Corpuscular Hemoglobin 31.4 pg (26-34); Mean Corpuscular Volume 98.5 fl (80-100); Mean Platelet Volume 11.9 fl (7.4-10.4); Monocytes Absolute Auto 0.7 K/mm3 (0.1-0.6); Monocytes Percent Auto 14.6 % (2.6-8.5); Neutrophils Absolute Auto 2.3 K/mm3 (1.3-6.7); Neutrophils Percent Auto 51.7 % (45.5-73.1); Platelet Count Result 195 k/mm3 (150-375); Red Blood Count 3.38 M/mm3 (4.6-6.20); White Blood Count 4.5 K/mm3 (4.5-10.0)
[2022-05-11 11:17] LABS: Alanine Aminotransferase 11 U/L (6-50); Albumin Level 4.1 g/dL (3.5-5.1); Alkaline Phosphatase 67 U/L (38-126); Anion Gap 6 mmol/L (8-16); Aspartate Amino Transferase 37 U/L (17-59); Bilirubin,Total 0.8 mg/dL (0.2-1.3); Blood Urea Nitrogen 13 mg/dL (9-20); CRP 1.8 mg/dL (<1.0); Calcium 8.9 mg/dL (8.4-10.2); Carbon Dioxide 24 mmol/L (22-30); Chloride 110 mmol/L (98-107); Estimated Glomerular Filt Rate > 60; Glucose 92 mg/dL (65-110); Potassium 4.4 mmol/L (3.4-5.0); Sodium 140 mmol/L (137-145)
[2022-05-11 11:31] LABS: Erythrocyte Sedimentation Rate 173 mm/hr (0-20)
[2022-05-18 11:17] LABS: Basophils Absolute Auto 0.1 K/mm3 (0.0-0.1); Basophils Percent Auto 1.3 % (0.2-1.2); Eosinophils Absolute Auto 0.3 K/mm3 (0-0.3); Eosinophils Percent Auto 5.5 % (0-4.4); Hematocrit 33.1 % (42.0-52.0); Hemoglobin 10.7 g/dL (14.0-18.0); Immature Granulocyte Absolute 0.02 K/mm3 (0.00-0.031); Immature Granulocyte Percent A 0.4 % (0-0.5); Lymphocytes Absolute Auto 1.31 K/mm3 (0.9-3.2); Lymphocytes Percent Auto 28.9 % (18.3-44.2); Mean Corpuscular HGB Conc 32.3 g/dl (32-36); Mean Corpuscular Hemoglobin 32.3 pg (26-34); Mean Platelet Volume 12.1 fl (7.4-10.4); Monocytes Absolute Auto 0.5 K/mm3 (0.1-0.6); Monocytes Percent Auto 10.4 % (2.6-8.5); Neutrophils Absolute Auto 2.4 K/mm3 (1.3-6.7); Neutrophils Percent Auto 53.5 % (45.5-73.1); Platelet Count Result 174 k/mm3 (150-375); Red Blood Count 3.31 M/mm3 (4.6-6.20); Red Cell Distribution Width 13.8 % (11.5-14.5); White Blood Count 4.5 K/mm3 (4.5-10.0)
[2022-05-18 11:27] LABS: Alanine Aminotransferase 12 U/L (6-50); Albumin Level 4.2 g/dL (3.5-5.1); Alkaline Phosphatase 68 U/L (38-126); Anion Gap 10 mmol/L (8-16); Aspartate Amino Transferase 47 U/L (17-59); Bilirubin,Total 0.6 mg/dL (0.2-1.3); Blood Urea Nitrogen 16 mg/dL (9-20); Calcium 8.8 mg/dL (8.4-10.2); Carbon Dioxide 23 mmol/L (22-30); Chloride 110 mmol/L (98-107); Estimated Glomerular Filt Rate > 60; Glucose 81 mg/dL (65-110); Potassium 4.4 mmol/L (3.4-5.0); Sodium 143 mmol/L (137-145)
[2022-05-18 11:48] LABS: Erythrocyte Sedimentation Rate 77 mm/hr (0-20)
[2022-05-18 14:44] LABS: CRP 2.4 mg/dL (<1.0)
[2022-05-25 11:51] LABS: Basophils Absolute Auto 0.1 K/mm3 (0.0-0.1); Basophils Percent Auto 1.2 % (0.2-1.2); Eosinophils Absolute Auto 0.1 K/mm3 (0-0.3); Eosinophils Percent Auto 1.7 % (0-4.4); Hematocrit 35.1 % (42.0-52.0); Hemoglobin 11.2 g/dL (14.0-18.0); Immature Granulocyte Absolute 0.02 K/mm3 (0.00-0.031); Immature Granulocyte Percent A 0.5 % (0-0.5); Lymphocytes Absolute Auto 0.67 K/mm3 (0.9-3.2); Lymphocytes Percent Auto 16.1 % (18.3-44.2); Mean Corpuscular HGB Conc 31.9 g/dl (32-36); Mean Corpuscular Hemoglobin 31.5 pg (26-34); Mean Corpuscular Volume 98.9 fl (80-100); Mean Platelet Volume 12.7 fl (7.4-10.4); Monocytes Absolute Auto 0.5 K/mm3 (0.1-0.6); Monocytes Percent Auto 12.9 % (2.6-8.5); Neutrophils Absolute Auto 2.8 K/mm3 (1.3-6.7); Neutrophils Percent Auto 67.6 % (45.5-73.1); Platelet Count Result 124 k/mm3 (150-375); Red Blood Count 3.55 M/mm3 (4.6-6.20); Red Cell Distribution Width 13.6 % (11.5-14.5); White Blood Count 4.2 K/mm3 (4.5-10.0)
[2022-05-25 12:07] LABS: Alanine Aminotransferase 16 U/L (6-50); Albumin Level 4.3 g/dL (3.5-5.1); Alkaline Phosphatase 79 U/L (38-126); Anion Gap 8 mmol/L (8-16); Aspartate Amino Transferase 58 U/L (17-59); Bilirubin,Total 1.6 mg/dL (0.2-1.3); Blood Urea Nitrogen 17 mg/dL (9-20); CRP 1.5 mg/dL (<1.0); Calcium 9.5 mg/dL (8.4-10.2); Carbon Dioxide 22 mmol/L (22-30); Chloride 109 mmol/L (98-107); Estimated Glomerular Filt Rate > 60; Glucose 115 mg/dL (65-110); Potassium 4.8 mmol/L (3.4-5.0); Sodium 139 mmol/L (137-145)
[2022-05-25 13:05] LABS: Erythrocyte Sedimentation Rate 49 mm/hr (0-20)
[2022-05-31 11:07] LABS: Basophils Percent Auto 0.9 % (0.2-1.2); Eosinophils Absolute Auto 0.2 K/mm3 (0-0.3); Eosinophils Percent Auto 4.5 % (0-4.4); Hematocrit 34.4 % (42.0-52.0); Immature Granulocyte Absolute 0.02 K/mm3 (0.00-0.031); Immature Granulocyte Percent A 0.5 % (0-0.5); Lymphocytes Absolute Auto 1.11 K/mm3 (0.9-3.2); Lymphocytes Percent Auto 26.3 % (18.3-44.2); Mean Corpuscular Hemoglobin 31.6 pg (26-34); Mean Corpuscular Volume 98.9 fl (80-100); Mean Platelet Volume 12.1 fl (7.4-10.4); Monocytes Absolute Auto 0.5 K/mm3 (0.1-0.6); Monocytes Percent Auto 12.6 % (2.6-8.5); Neutrophils Absolute Auto 2.3 K/mm3 (1.3-6.7); Neutrophils Percent Auto 55.2 % (45.5-73.1); Platelet Count Result 145 k/mm3 (150-375); Red Blood Count 3.48 M/mm3 (4.6-6.20); Red Cell Distribution Width 13.9 % (11.5-14.5); White Blood Count 4.2 K/mm3 (4.5-10.0)
[2022-05-31 11:23] LABS: Alanine Aminotransferase 31 U/L (6-50); Albumin Level 4.4 g/dL (3.5-5.1); Alkaline Phosphatase 67 U/L (38-126); Anion Gap 10 mmol/L (8-16); Aspartate Amino Transferase 68 U/L (17-59); Bilirubin,Total 0.8 mg/dL (0.2-1.3); Blood Urea Nitrogen 22 mg/dL (9-20); CRP 1.2 mg/dL (<1.0); Carbon Dioxide 23 mmol/L (22-30); Chloride 105 mmol/L (98-107); Estimated Glomerular Filt Rate 44; Glucose 95 mg/dL (65-110); Potassium 4.1 mmol/L (3.4-5.0); Sodium 138 mmol/L (137-145)
[2022-05-31 12:40] LABS: Erythrocyte Sedimentation Rate 49 mm/hr (0-20)
== END 2022-07-27 23:59 | disposition home or self-care (01) ==
LOC: ANHLAB 10:41
PROVIDERS: PCP Internal Medicine; Visit Provider Internal Medicine
DX: Z45.2 Encounter for adjustment and management of vascular access device (principal)
CPT/HCPCS: 36415; 80053; 85025; 85652; 86140

== ENCOUNTER 2022-07-22 00:37 | Day surgery (SDC) | payer OTHER, SELFPAY ==
[2022-07-13 09:22] VITALS: BMI 31.4
--- NOTE | 2022-07-21 13:05 | PM.HPGS ---
History of Present Illness History of Present Illness Consent: Risks, benefits, and alternatives have been discussed and questions answered. Patient agrees to proceed with procedure. Chief complaint: neoplasm screening Narrative: Segundo Danielson is a 62 year old male was referred for colon cancer screening. His last colonoscopy was about 8 years ago. Review of Systems Review of Systems: All systems reviewed & are unremarkable except as noted in HPI and below PMFSH Past Medical History Medical History (Updated 07/01/22 @ 09:27 by Kalyn Barr [facility]) Anxiety Benign essential hypertension BMI 32.0-32.9,adult Chronic kidney disease, stage 3 Colon cancer screening Dupuytren's contracture Erectile dysfunction Gouty arthritis Hyperlipidemia Peripheral neuropathy Rheumatoid arthritis Vitamin B12 deficiency Vitamin D deficiency Surgical History Surgical History History of appendectomy Family History Family History Grandparent Heart attack AAA (abdominal aortic aneurysm) Lupus Social History Social History Social History: Surrogate decision maker: Peter Danielson, spouse. Code status: Full code. Smoking packs per day: 0.05 Smoking cigarettes per day: 1.0 Years smoked: 20 Smoking pack-years: 1.00 Smoking status: Former smoker Tobacco type: cigarettes Second hand tobacco smoke exposure: No Additional smoking assessment comments: VERY LIGHT SMOKER ON WEEKENDS ONLY 3-4 CIG. ON SAT. 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 care concerns: No Meds Home Medications and Allergies Home Medications Medication Instructions Recorded Confirmed Type folic acid 1 mg tablet 1 mg PO DAILY #90 tabs 04/30/21 07/13/22 Rx furosemide 20 mg tablet (Lasix) 20 mg PO QAM #90 tabs 04/07/22 07/13/22 Rx potassium chloride 8 mEq 8 meq PO DAILY #90 caps 04/07/22 07/13/22 Rx capsule,extended release allopurinol 300 mg tablet 300 mg PO BID 04/21/22 07/13/22 History atorvastatin 20 mg tablet See Rx Instructions .Route 04/26/22 07/13/22 Rx .COMPLEX #90 tabs oxycodone-acetaminophen 5 mg-325 1 tablet PO Q4H PRN Pain Rated 4-6 04/27/22 07/01/22 Rx mg tablet #12 tabs losartan 100 mg tablet 100 mg PO DAILY #90 tabs 05/03/22 07/13/22 Rx pantoprazole 40 mg tablet,delayed 40 mg PO QAM #90 tabs 05/10/22 07/13/22 Rx release sildenafil (pulm.hypertension) 20 See Rx Instructions .Route 05/11/22 07/13/22 Rx mg tablet .COMPLEX #100 tabs metoprolol succinate 50 mg 50 mg PO DAILY #90 tabs 06/14/22 07/01/22 Rx tablet,extended release 24 hr amlodipine 5 mg tablet 5 mg PO DAILY #90 tabs 06/28/22 07/13/22 Rx gabapentin 600 mg tablet 600 mg PO TID #270 tabs 07/01/22 07/13/22 Rx acetaminophen 300 mg-codeine 30 mg 1 tablet PO Q6H PRN pain #50 tabs 07/19/22 Rx tablet Allergies Allergy/AdvReac Type Severity Reaction Status Date / Time No Known Allergies Allergy Mild Verified 07/13/22 09:23 Exam Resp: Auscultation: clear to auscultation bilaterally Cardio: Rate: regular rate Rhythm: regular rhythm GI: GI Palp: Yes Soft to palpation and No Tenderness to palpation present (GI) Assessment and Plan Assessment and plan (1) Colon cancer screening: Code(s): Z12.11 - Encounter for screening for malignant neoplasm of colon Status: Acute Assessment and Plan: Colonoscopy with possible biopsy or polypectomy or cautery or injection of substances.
[2022-07-22 06:59] VITALS: BP 111/72; PULSE 88; RESP 18; TEMP 36.6; O2SAT 100
[2022-07-22] MEDS: LACTATED RINGERS 1,000 ML 150 ML IV CONT (07:07)
--- NOTE | 2022-07-22 07:45 | WPDANESEPPF ---
Anes - Initial Pre Proc Eval Procedure: Operation Date: 07/22/22 08:00 Proposed Procedures p Screening Colonoscopy - Joey Polanco MD Date/Time: 07/22/22 07:45 Surgeon: Joey Polanco MD Pre Op Diagnosis: neoplasm screening Patient Data Age: 62 Gender: M Height: 1.88 m Weight: 115.4 kg Last Vital Signs Temp 97.9 F 07/22/22 06:59 Pulse 88 07/22/22 06:59 Resp 18 07/22/22 06:59 BP 111/72 07/22/22 06:59 Pulse Ox 100 07/22/22 06:59 O2 Del Method Room Air 07/22/22 06:59 Allergies Allergy/AdvReac Type Severity Reaction Status Date / Time No Known Allergies Allergy Mild Verified 07/22/22 06:56 Home Medications Medication Instructions Recorded Confirmed Type folic acid 1 mg tablet 1 mg PO DAILY #90 tabs 04/30/21 07/22/22 Rx furosemide 20 mg tablet (Lasix) 20 mg PO QAM #90 tabs 04/07/22 07/22/22 Rx potassium chloride 8 mEq 8 meq PO DAILY #90 caps 04/07/22 07/22/22 Rx capsule,extended release allopurinol 300 mg tablet 300 mg PO BID 04/21/22 07/22/22 History atorvastatin 20 mg tablet See Rx Instructions .Route 04/26/22 07/22/22 Rx .COMPLEX #90 tabs oxycodone-acetaminophen 5 mg-325 1 tablet PO Q4H PRN Pain Rated 4-6 04/27/22 07/22/22 Rx mg tablet #12 tabs losartan 100 mg tablet 100 mg PO DAILY #90 tabs 05/03/22 07/22/22 Rx pantoprazole 40 mg tablet,delayed 40 mg PO QAM #90 tabs 05/10/22 07/22/22 Rx release sildenafil (pulm.hypertension) 20 See Rx Instructions .Route 05/11/22 07/22/22 Rx mg tablet .COMPLEX #100 tabs metoprolol succinate 50 mg 50 mg PO DAILY #90 tabs 06/14/22 07/22/22 Rx tablet,extended release 24 hr amlodipine 5 mg tablet 5 mg PO DAILY #90 tabs 06/28/22 07/22/22 Rx gabapentin 600 mg tablet 600 mg PO TID #270 tabs 07/01/22 07/22/22 Rx acetaminophen 300 mg-codeine 30 mg 1 tablet PO Q6H PRN pain #50 tabs 07/19/22 07/22/22 Rx tablet Patient hx anesthesia problems: none Family hx anesthesia problems: none Results Review: All pre-operative results and documents have been reviewed as part of the pre-operative evaluation. [facility] [place] Past Medical History Medical History (Updated 07/01/22 @ 09:27 by Kalyn [facility]) Anxiety Benign essential hypertension BMI 32.0-32.9,adult Chronic kidney disease, stage 3 Colon cancer screening Dupuytren's contracture Erectile dysfunction Gouty arthritis Hyperlipidemia Peripheral neuropathy Rheumatoid arthritis Vitamin B12 deficiency Vitamin D deficiency Surgical History Surgical History History of appendectomy Family History Family History Grandparent Heart attack AAA (abdominal aortic aneurysm) Lupus Social History Social History Social History: Surrogate decision maker: Anhleroy Danielson, spouse. Code status: Full code. Smoking packs per day: 0.05 Smoking cigarettes per day: 1.0 Years smoked: 20 Smoking pack-years: 1.00 Smoking status: Former smoker Tobacco type: cigarettes Second hand tobacco smoke exposure: No Additional smoking assessment comments: VERY LIGHT SMOKER ON WEEKENDS ONLY 3-4 CIG. ON SAT. 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
[2022-07-22 08:17] VITALS: BP 106/71; PULSE 82; RESP 15; O2SAT 95
[2022-07-22 08:27] VITALS: BP 100/64; PULSE 81; RESP 20; O2SAT 96
[2022-07-22 08:37] VITALS: BP 104/68; PULSE 83; RESP 13; O2SAT 99
== END 2022-07-22 08:40 | disposition home or self-care (01) ==
PROVIDERS: PCP Internal Medicine; Visit Provider Internal Medicine Gastroenterology
PROC: 0DJD8ZZ Inspection of Lower Intestinal Tract, Via Natural or Artificial Opening Endoscopic (ICD-10-PCS; CPT 45378; principal; 2022-07-22 08:00)
DX: Z12.11 Encounter for screening for malignant neoplasm of colon (principal); K57.30 Diverticulosis of large intestine without perforation or abscess without bleeding; I12.9 Hypertensive chronic kidney disease with stage 1 through stage 4 chronic kidney disease, or unspecified chronic kidney disease; N18.30 Chronic kidney disease, stage 3 unspecified; E78.5 Hyperlipidemia, unspecified; G62.9 Polyneuropathy, unspecified; E55.9 Vitamin D deficiency, unspecified; E53.8 Deficiency of other specified B group vitamins; F41.9 Anxiety disorder, unspecified; M10.9 Gout, unspecified; Z72.0 Tobacco use; E66.9 Obesity, unspecified; Z68.32 Body mass index [BMI] 32.0-32.9, adult
CPT/HCPCS: 45378; J2704; J7120

== ENCOUNTER 2022-08-13 11:26 | Inpatient (IN) | payer OTHER, SELFPAY ==
--- NOTE | ~2022-08-13 | US_ITS ---
EXAMINATION:US venous doppler LE BI INDICATION:Leg swelling. DVT. TECHNIQUE: Multiple grayscale, color flow and Doppler images of the right and left lower extremity de ep venous systems were obtained and reviewed. COMPARISON:08/13/2022 FINDINGS: The common femoral, superficial femoral and popliteal veins demonstrate normal respiratory variation, augmentation and compressibility. Color flow is also seen within the posterior tibial, pe roneal, greater saphenous and profunda veins. IMPRESSION: 1: No lower extremity deep venous thrombosis. Reviewed, dictated and finalized at location B.
--- NOTE | ~2022-08-13 | XR_ITS ---
XR foot LT 2V 08/13/2022 22:07 Indication: Left foot pain and swelling Procedure: 2 views left foot Comparison: No prior studies for comparison. Findings: There is advanced osteoarthritis of the first MTP and IP joints. Lisfranc joint intact. Ost eopenia. There is moderate polyarticular degenerative change of the midfoot. There is moderate dorsal soft tissue swelling. No foreign bodies. Impression: 1: Moderate polyarticular osteoarthritis, most advanced at the first MTP joint. Reviewed, dictated and finalized at location A. Impression: 1: Moderate polyarticular osteoarthritis, most advanced at the first MTP joint.
--- NOTE | ~2022-08-13 | US_ITS ---
EXAMINATION: US venous doppler [facility] DATE: 08/13/2022 12:30 INDICATION: Left lower limb swelling TECHNIQUE: Villarreal scale images without and with compression and Doppler images of the left lower extrem ity veins were obtained. COMPARISON: None FINDINGS: The left common femoral vein, profunda femoral vein, femoral vein, popliteal vein, peroneal trunk, posterior tibial veins, and greater saphenous vein are patent. IMPRESSION: 1. Patent left lower extremity veins. No evidence of deep venous thrombosis. Reviewed, dictated and finalized at location A.
--- NOTE | ~2022-08-13 | US_ITS ---
US renal BI DATE: 08/14/2022 15:12 INDICATION: Acute renal failure TECHNIQUE: Real-time imaging of kidneys and urinary bladder COMPARISON: January 16, 2020 bilateral renal ultrasound FINDINGS: Right kidney measures approximately 11 cm length, left kidney approximately 10.6 cm length. There is an approximately 3 x 3.6 cm septated cyst of the right kidney. No renal mass lesion is noted otherwise. No hydronephrosis of either kidney. The urinary bladder appears unremarkable. IMPRESSION: No evidence of obstructive uropathy Right renal cyst Reviewed, dictated and finalized at Location A. Reviewed, dictated and finalized at location A.
[2022-08-13 11:36] VITALS: BP 106/61; PULSE 100; RESP 18; TEMP 36.6; O2SAT 100
--- NOTE | 2022-08-13 12:11 | PC.NURSE ---
Pt to US
[2022-08-13 13:02] LABS: Basophils Absolute Auto 0.1 K/mm3 (0.0-0.1); Basophils Percent Auto 0.9 % (0.2-1.2); Eosinophils Absolute Auto 0.2 K/mm3 (0-0.3); Hematocrit 31.6 % (42.0-52.0); Hemoglobin 10.4 g/dL (14.0-18.0); Immature Granulocyte Absolute 0.04 K/mm3 (0.00-0.031); Immature Granulocyte Percent A 0.5 % (0-0.5); Lymphocytes Absolute Auto 1.42 K/mm3 (0.9-3.2); Lymphocytes Percent Auto 18.5 % (18.3-44.2); Mean Corpuscular HGB Conc 32.9 g/dl (32-36); Mean Corpuscular Hemoglobin 31.2 pg (26-34); Mean Corpuscular Volume 94.9 fl (80-100); Mean Platelet Volume 11.1 fl (7.4-10.4); Monocytes Percent Auto 12.9 % (2.6-8.5); Neutrophils Percent Auto 65.2 % (45.5-73.1); Platelet Count Result 167 k/mm3 (150-375); Red Blood Count 3.33 M/mm3 (4.6-6.20); Red Cell Distribution Width 13.4 % (11.5-14.5); White Blood Count 7.7 K/mm3 (4.5-10.0)
[2022-08-13 13:12] LABS: Alanine Aminotransferase 23 U/L (6-50); Albumin Level 4.1 g/dL (3.5-5.1); Alkaline Phosphatase 81 U/L (38-126); Anion Gap 15 mmol/L (8-16); Aspartate Amino Transferase 41 U/L (17-59); Bilirubin,Total 1.2 mg/dL (0.2-1.3); Blood Urea Nitrogen 35 mg/dL (9-20); Calcium 9.1 mg/dL (8.4-10.2); Carbon Dioxide 20 mmol/L (22-30); Chloride 99 mmol/L (98-107); Estimated CRCL calculation 39 ml/min; Estimated Glomerular Filt Rate 28; Glucose 96 mg/dL (65-110); Potassium 3.8 mmol/L (3.4-5.0); Sodium 134 mmol/L (137-145)
[2022-08-13 13:19] LABS: INR 1.3; Partial Thromboplastin Time 35.5 SECONDS (22.3-36.8); Prothrombin Time 15.4 Seconds (11.1-14.7)
--- NOTE | 2022-08-13 14:59 | ED.GENADULT ---
HPI - General Adult General Chief complaint: Extremity Injury, Lower Stated complaint: left foot and ankle swelling Time Seen by Provider: 08/13/22 11:33 History of Present Illness HPI narrative: Patient is a 62-year-old male who presents ER with left lower extremity redness and swelling. Worsening over the last week since [place] He has some dependent bruising in his foot. No inability to walk. Denies fevers or chills or sweats. Swelling has increased and become more red and warm so he opted for evaluation. No history of diabetes. Does have some chronic lower extremity edema and takes Lasix at home. This is not modified. Related Data Home Medications Medication Instructions Recorded Confirmed allopurinol 300 mg tablet 300 mg PO BID 04/21/22 07/22/22 Allergies Allergy/AdvReac Type Severity Reaction Status Date / Time No Known Allergies Allergy Mild Verified 08/13/22 11:35 Review of Systems Review of Systems: All systems reviewed & are unremarkable except as noted in HPI and below Constitutional: Constitutional: Denies chills and Denies fever(s) Cardiovascular: Cardiovascular: Denies chest pain and Denies rapid heart rate Respiratory: Respiratory: Denies cough, Denies dyspnea and Denies wheezing Musculoskeletal: Musculoskeletal: Denies myalgias, Denies arthralgias and Denies joint swelling Integumentary/Breasts: Skin/Breast: Reports erythema and Reports rash Comments: Left wallis abrasion PMFSH Past Medical History Medical History (Updated 08/13/22 @ 19:18 by Rio Robles MD) Anxiety Benign essential hypertension BMI 32.0-32.9,adult Chronic kidney disease, stage 3 Colon cancer screening Dupuytren's contracture Erectile dysfunction Gouty arthritis Hyperlipidemia Peripheral neuropathy Rheumatoid arthritis Vitamin B12 deficiency Vitamin D deficiency Surgical History Surgical History History of appendectomy Family History Family History Grandparent Heart attack AAA (abdominal aortic aneurysm) Lupus Social History Social History Social History: Surrogate decision maker: Peter Danielson, spouse. Code status: Full code. Smoking packs per day: 0.05 Smoking cigarettes per day: 1.0 Years smoked: 20 Smoking pack-years: 1.00 Smoking status: Never smoker Tobacco type: cigarettes Second hand tobacco smoke exposure: No Additional smoking assessment comments: VERY LIGHT SMOKER ON WEEKENDS ONLY 3-4 CIG. ON SAT. 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 HEAD: Normocephalic, atraumatic. EYES: PERRL and EOMI. ENT: Mucous membranes moist. CHEST: Clear to auscultation. No respiratory distress. HEART: Regular rate and rhythm. Normal peripheral pulses. ABDOMEN: Soft, nontender, nondistended. EXTREMITIES: Normal range of motion. 2+ edema LLE, 1+ RLE. Bruising inferior to the ankle in a dependent fashion left lateral malleolus. SKIN: Warm, dry. Petechia of the shins bilaterally. NEURO: Alert and oriented x3. PSYCH: Normal mood and affect. Course Course Emergency Course: Admit for observation. Patient with worsening renal issues. Patient does see Dr. Ponce. Reports she has had medication induced RADHA in the past. His best creatinine was 0.6. Recently patient had kidney issues but his creatinine normalized to 1.0. Vital Signs Vital signs: Vital Signs Temperature 97.8 F 08/13/22 11:36 Pulse Rate 100 08/13/22 11:36 Respiratory Rate 18 08/13/22 11:36 Blood Pressure 106/61
[2022-08-13 15:45] VITALS: BP 130/73; PULSE 93; RESP 16; TEMP 37.2; O2SAT 99
[2022-08-13] MEDS: ONDANSETRON INJ 4 MG/2 ML VIAL IV PUSH (15:50)
[2022-08-13] MEDS: SODIUM CHLORIDE 0.9% IV 1,000 ML 125 ML IV CONT (15:51)
[2022-08-13] MEDS: MORPHINE SULFATE (*CRX) 4 MG/ML INJ IV PUSH ×2 (15:51→23:35)
[2022-08-13 16:21] LABS: SARS-CoV-2 RNA PCR Negative
[2022-08-13] MEDS: HYDROcodone/acetaminophen (*CRX) 5-325 MG TABLET 1 TAB PO ×2 (16:42→20:48)
--- NOTE | 2022-08-13 17:40 | ADMGEN ---
This patient, Segundo Danielson, was admitted to Medical Room 242-01 at 1700. Patient/family oriented to hospital policies and general routines including ID bracelet, bed and alarms, visiting hours, pain management, procedures, bathroom and other care routines, personal items, smoking policy, room service/diet, and visiting hours. Information on how to activate the Rapid Response Team has been discussed. Patient/Family are encouraged to report perceived risks to care and to ask questions if they do not understand what they are told or what they should do.
[2022-08-13 18:00] VITALS: BP 106/68; PULSE 93; RESP 16; TEMP 36.9; O2SAT 96; BMI 33.3
[2022-08-13 21:12] VITALS: BP 104/66; PULSE 95; RESP 20; TEMP 36.6; O2SAT 95
--- NOTE | 2022-08-13 21:42 | PM.IMHP ---
H&P: HPI History of Present Illness Date/Time: 08/13/22 21:42 Chief Complaint: complained of redness to left lower extremity Narrative: this is a 62-year-old male patient who came to the emergency room to complained of left lower extremity redness and swelling. The patient stated that he had flip-flops on and he was getting out of a boat and slipped and hit his wallis on a boat dock 5 days ago. Patient has some bruising on the lateral portion of his left foot patient is able to walk on it but did notice a bruising until a day or 2 later. Redness developed to the left wallis area that has increased over the last few days. He denies any fever chills or sweats. He has no history of diabetes. He does have edema to that left foot and has some chronic lower extremity edema he takes Lasix at home. Venous Doppler shows pain left lower extremity veins no evidence of deep vein thrombosis. The patient did try antibiotic ointment to the lower extremity which did not help. His H&H is 10.4 and 31.6 which is slightly worse than last month. Sodium 134. BUN 35 creatinine 2.4. Last hemoglobin A1c on 07/05/2022 was 5.1. COVID screen is negative today. Patient does have a history of chronic renal disease stage III any stated that he tries to avoid NSAIDs and tries to limit the amount of allopurinol that he takes as well. The patient was started on Ancef and Vicodin in the emergency room. The patient is being admitted to observation status on the date of service of 08/13/2022. Review of Systems Review of Systems: See HPI All systems reviewed & are unremarkable except as noted in HPI and below Constitutional: Constitutional: Reports as per HPI and Reports no additional constitutional complaints Eyes: Eyes: Reports as per HPI and Reports no additional eye complaints ENT: Reports system reviewed and no additional complaints, except as documented and Reports Normal hearing present Cardiovascular: Cardiovascular: Reports no additional cardiovascular complaints Respiratory: Respiratory: Reports no additional respiratory complaints and Reports no additional respiratory complaints Gastrointestinal: Gastrointestinal: Reports as per HPI and Reports no additional gastrointestinal complaints Musculoskeletal: Musculoskeletal: Reports no additional musculoskeletal complaints Integumentary/Breasts: Skin/Breast: Reports system reviewed and no additional complaints, except as docu and Reports as per HPI Neurologic: Reports system reviewed and no additional complaints, except as documented, Reports as per HPI and Reports Normal hearing present Psychiatric: Psychiatric: Reports no additional psychiatric complaints and Reports as per HPI Endocrine: Endocrine: Reports no additional endocrine complaints Hematologic/Lymphatic: Hematologic/Lymphatic: Reports no additional hematologic/lymphatic complaints Allergic/Immunologic: Allergic/Immunologic: Reports no additional allergic/immunologic complaints [facility] Past Medical History Medical History (Updated 08/13/22 @ 22:10 by Belinda Pina NP) Acute renal insufficiency Anemia Anxiety Benign essential hypertension BMI 32.0-32.9,adult Cellulitis of great toe of right foot Chronic kidney disease, stage 3 Colon cancer screening Complete tear of rotator cuff Dupuytren's contracture Elevated glucose Elevated LFTs Elevated serum creatinine Elevated serum GGT level Elevated TSH Encounter for preventive health examination Erectile dysfunction Gouty arthritis Hyperglycemia Hyperlipidemia Nausea and vomiting Pain and swelling of toe of right foot Peripheral neuropathy Prostate cancer screening Rheumatoid arthritis Right hallux osteomyelitis Vitamin B12 deficiency Vitamin D deficiency Surgical History Surgical History (Updated 08/13/22 @ 21:49 by Belinda Pina NP) H/O toe surgery right big toe proximally [address] Baez podiatry History of appendectomy Family History Family Hi
[2022-08-14] MEDS: HYDROcodone/acetaminophen (*CRX) 5-325 MG TABLET 1 TAB PO ×6 (00:54→21:28)
[2022-08-14] MEDS: MORPHINE SULFATE (*CRX) 4 MG/ML INJ IV PUSH ×2 (02:54→20:09)
[2022-08-14] MEDS: SODIUM CHLORIDE 0.9% IV 1,000 ML 125 ML IV CONT ×3 (04:18→20:04)
[2022-08-14 06:00] VITALS: BP 118/66; PULSE 88; RESP 20; TEMP 36.6; O2SAT 99
[2022-08-14 06:16] LABS: Basophils Absolute Auto 0.1 K/mm3 (0.0-0.1); Basophils Percent Auto 0.7 % (0.2-1.2); Eosinophils Absolute Auto 0.3 K/mm3 (0-0.3); Eosinophils Percent Auto 4.1 % (0-4.4); Hematocrit 31.9 % (42.0-52.0); Hemoglobin 10.5 g/dL (14.0-18.0); Immature Granulocyte Absolute 0.02 K/mm3 (0.00-0.031); Immature Granulocyte Percent A 0.3 % (0-0.5); Lymphocytes Absolute Auto 1.67 K/mm3 (0.9-3.2); Lymphocytes Percent Auto 23.3 % (18.3-44.2); Mean Corpuscular HGB Conc 32.9 g/dl (32-36); Mean Corpuscular Hemoglobin 32.2 pg (26-34); Mean Corpuscular Volume 97.9 fl (80-100); Monocytes Absolute Auto 0.6 K/mm3 (0.1-0.6); Monocytes Percent Auto 8.8 % (2.6-8.5); Neutrophils Absolute Auto 4.5 K/mm3 (1.3-6.7); Neutrophils Percent Auto 62.8 % (45.5-73.1); Platelet Count Result 158 k/mm3 (150-375); Red Blood Count 3.26 M/mm3 (4.6-6.20); Red Cell Distribution Width 13.6 % (11.5-14.5); White Blood Count 7.2 K/mm3 (4.5-10.0)
[2022-08-14 06:21] LABS: Alanine Aminotransferase 21 U/L (6-50); Albumin Level 4.1 g/dL (3.5-5.1); Alkaline Phosphatase 80 U/L (38-126); Anion Gap 14 mmol/L (8-16); Aspartate Amino Transferase 34 U/L (17-59); Bilirubin,Total 1.8 mg/dL (0.2-1.3); Blood Urea Nitrogen 31 mg/dL (9-20); Calcium 8.8 mg/dL (8.4-10.2); Carbon Dioxide 22 mmol/L (22-30); Chloride 101 mmol/L (98-107); Estimated CRCL calculation 48 ml/min; Estimated Glomerular Filt Rate 34; Glucose 104 mg/dL (65-110); Magnesium 1.2 mg/dL (1.6-2.3); Potassium 3.6 mmol/L (3.4-5.0); Sodium 137 mmol/L (137-145)
[2022-08-14 06:30] LABS: Lactic Acid Reflex 1.5 mmol/L (0.7-2.0)
[2022-08-14] MEDS: MAGNESIUM SULF 2 GM/WATER 50ML 2 GM/50 ML BAG IVPB (08:55)
[2022-08-14] MEDS: amLODIPine BESYLATE 5 MG TABLET BY MOUTH (08:58)
[2022-08-14] MEDS: GABAPENTIN 300 MG CAPSULE 600 MG PO ×3 (08:59→17:43)
[2022-08-14] MEDS: ATORVASTATIN 20 MG TABLET PO (08:59)
[2022-08-14] MEDS: ENOXAPARIN 40 MG/0.4 ML SYRINGE SUB-Q (08:59)
[2022-08-14] MEDS: FOLIC ACID 1 MG TABLET PO (08:59)
[2022-08-14] MEDS: PANTOPRAZOLE 40 MG TABLET PO (09:00)
--- NOTE | 2022-08-14 10:31 | PM.CNNEP ---
Assessment and Plan Assessment and plan (1) RADHA (acute kidney injury): Code(s): N17.9 - Acute kidney failure, unspecified Status: Acute Assessment and Plan: The patient has acute kidney injury. His creatinine has been up and down over last couple of years. Lately it has been relatively normal except when under stress. Now the patient has a significant infection. He also probably has not it been eating and drinking very well and also is on furosemide so could have an element of dehydration. Infection can cause ATN. Interstitial nephritis is less likely because he has not been on antibiotics lately. Glomerulonephritis is unlikely in this clinical scenario but we will check a urinalysis. He does have rheumatoid arthritis so always could develop some sort of an autoimmune disease however in the setting of infection it is much more likely 1 of the above issues. Rhabdomyolysis is a possibility. Does have significant swelling in the legs and his posterior tibial pulses are a little bit on the low side so I am going to have a surgeon see the patient just to make sure this isn't compartment syndrome. This could cause rhabdomyolysis and renal failure. But most importantly on make sure that the foot is okay. his creatinine is better this morning. This suggests a prerenal component at least. Will check urine electrolytes, urinalysis, CPK, renal ultrasound if not ordered,. Will continue IV fluids. Will check more labs tomorrow. (2) Cellulitis of left lower limb: Code(s): L03.116 - Cellulitis of left lower limb Status: Acute Assessment and Plan: The patient is getting antibiotics. (3) Anemia: Code(s): D64.9 - Anemia, unspecified Status: Acute Assessment and Plan: The patient has a mild anemia. Will keep an eye on this. He does have B12 deficiency in the past so I will check a B12 level. (4) Chronic gout of multiple sites: Code(s): M1A.09X0 - Idiopathic chronic gout, multiple sites, without tophus (tophi) Status: Acute (5) Essential (primary) hypertension: Code(s): I10 - Essential (primary) hypertension Status: Acute Assessment and Plan: His blood pressure is under good control. He is on amlodipine currently. Because of a side effect of edema will hold off on this and try a beta-rylan. (6) Rheumatoid arthritis: Qualifiers: Rheumatoid arthritis location: multiple sites Rheumatoid factor presence: unspecified presence Qualified Code(s): M06.9 - Rheumatoid arthritis, unspecified Code(s): M06.9 - Rheumatoid arthritis, unspecified Status: Acute (7) Vitamin B12 deficiency: Code(s): E53.8 - Deficiency of other specified B group vitamins Status: Acute Assessment and Plan: Will check a level (8) Vitamin D deficiency: Code(s): E55.9 - Vitamin D deficiency, unspecified Status: Acute Assessment and Plan: will check a low (9) Hyperlipidemia: Qualifiers: Hyperlipidemia type: mixed hyperlipidemia Qualified Code(s): E78.2 - Mixed hyperlipidemia Code(s): E78.5 - Hyperlipidemia, unspecified Status: Acute Assessment and Plan: on atorvastatin History of Present Illness Reason for Consult Consult date: 08/14/22 Chief Complaint Chief complaint: RADHA/Cellulitis History of Present Illness Narrative: Segundo is a very pleasant 62-year-old gentleman who has multiple medical problems including neuropathy, gout, hypertension, anemia, anxiety, Dupuytren's contracture, vitamin-D and vitamin B12 deficiencies, rheumatoid arthritis, hyperlipidemia on a chronic basis. In January the patient developed a gouty attack on the right toe. This swelling so was so bad it caused a fissure on the solar aspect of the MTP of the right 1st digit. he was given meds for gout and antibiotics and ultimately these did not work so he went to a trade show coordinator
[2022-08-14 11:13] LABS: Creatine Kinase 157 U/L (55-170); Uric Acid 3.5 mg/dL (3.5-8.5)
[2022-08-14 11:30] LABS: Total Triiodothyronine (T3) 1.47 NG/ML (0.97-1.69)
--- NOTE | 2022-08-14 11:57 | PM.IMPN ---
Progress Note: A&P Assessment and Plan (1) Cellulitis of left lower limb: Code(s): L03.116 - Cellulitis of left lower limb Status: Acute Assessment and Plan: - Left foot x-ray with moderate polyarticular OA. Most advanced at the first MTP joint. - continue with Ancef and Vancomycin as per cellulitis protocol - blood cultures pending - Pain meds prn - Continue to monitor daily labs and VS. - Venous doppler negative bilaterally. (2) RADHA (acute kidney injury): Code(s): N17.9 - Acute kidney failure, unspecified Status: Acute Assessment and Plan: - Etiology most likely acute infeciton. - acute on chronic renal failure stage 3 - Hold Lasix, losartan and allopurinol - renal ultrasound pending - Dr. Ponce has been consulted and is managing. - Trend creatinine. Yesterday Creatinine was 2.4. It was 2.0 this morning. - Continue IVF and monitor. - Baseline is 1.1-1.6. (3) Chronic gout of multiple sites: Code(s): M1A.09X0 - Idiopathic chronic gout, multiple sites, without tophus (tophi) Status: Acute Assessment and Plan: - Holding Allopurinol in setting of RADHA. (4) Essential (primary) hypertension: Code(s): I10 - Essential (primary) hypertension Status: Acute Assessment and Plan: - Holding Lasix, Losartan in setting of RADHA. (5) Open wound of right great toe: Qualifiers: Encounter type: subsequent encounter Qualified Code(s): S91.101D - Unspecified open wound of right great toe without damage to nail, subsequent encounter Code(s): S91.101A - Unspecified open wound of right great toe without damage to nail, initial encounter Status: Acute Assessment and Plan: - the patient stated that he has been seeing his lead javascript engineer Dr. Baez - it is taken the right great toe 3 months to heal and is nearly closed now. - Physican exam is benign. (6) Hyperlipidemia: Qualifiers: Hyperlipidemia type: mixed hyperlipidemia Qualified Code(s): E78.2 - Mixed hyperlipidemia Code(s): E78.5 - Hyperlipidemia, unspecified Status: Acute Assessment and Plan: - Continue with atorvastatin (7) Peripheral neuropathy: Qualifiers: Peripheral neuropathy type: polyneuropathy, unspecified Qualified Code(s): G62.9 - Polyneuropathy, unspecified Code(s): G62.9 - Polyneuropathy, unspecified Status: Acute Assessment and Plan: - continue with gabapentin (8) Anemia: Code(s): D64.9 - Anemia, unspecified Status: Acute Assessment and Plan: - Likely chronic. Hgb 10.5 this AM. - Continue to monitor. - No overt bleeding. - Ferritin is 790.0 (9) Hypomagnesemia: Code(s): E83.42 - Hypomagnesemia Status: Acute Assessment and Plan: - Magnesium today is 1.8. - Pt. given 2G Magnesium rider. (10) Subclinical hypothyroidism: Code(s): E03.8 - Other specified hypothyroidism Status: Acute Assessment and Plan: - TSH elevated at 11.20 - Free T4 is 1.40 - Pt. asymptomatic. Time Spent With Patient Time with patient: 15 - 25 minutes Subjective Date/time seen: 08/14/22 1052 This pt. was examined at the bedside in interval assessment since being admitted to the hospital for Cellulitis of the LLE. He remains on IV abx of Vanc and Ancef. Cultures pending. In addition, he is being treated for RADHA, and his Creatinine is trending downward. It is now 2.0. Nephrology consulted and is managing with medicine. The pt. has a history of neuropathy and reports that he has no new complaints or symptoms and he has intact sensation for him in his setting of neuropathy of the LLE. He reports he already has some pain decreasing in the left leg and he also has decreasing edema as compared to when he came in. He has no CP, dyspnea, N/V/D/urinary complaints. Review of Systems Review of Systems: All systems reviewed & are unremarkable except as noted in HPI and
[2022-08-14 12:19] LABS: Folic Acid 15.9 ng/mL (2.76->20); Vitamin B12 < 159.0 pg/mL (239-931)
[2022-08-14 14:00] VITALS: BP 111/72; PULSE 83; RESP 14; TEMP 36.3; O2SAT 98
[2022-08-14 14:04] LABS: Total Protein Urine Random 8 mg/dL; Ur Ttl Prot Creatinine Ratio 0.11 mg/mg (0-0.20)
[2022-08-14 14:05] LABS: Sodium Urine Random 42 meq/L
[2022-08-14 20:20] VITALS: BP 128/73; PULSE 93; RESP 20; TEMP 36.8; O2SAT 96
[2022-08-15] MEDS: MORPHINE SULFATE (*CRX) 4 MG/ML INJ IV PUSH ×6 (00:02→22:45)
[2022-08-15] MEDS: HYDROcodone/acetaminophen (*CRX) 5-325 MG TABLET 1 TAB PO ×5 (04:39→21:08)
[2022-08-15] MEDS: SODIUM CHLORIDE 0.9% IV 1,000 ML 125 ML IV CONT (04:40)
[2022-08-15 05:53] VITALS: BP 117/71; PULSE 89; RESP 16; TEMP 36.7; O2SAT 96
[2022-08-15 06:32] LABS: Basophils Percent Auto 0.7 % (0.2-1.2); Eosinophils Absolute Auto 0.3 K/mm3 (0-0.3); Eosinophils Percent Auto 5.3 % (0-4.4); Hematocrit 29.8 % (42.0-52.0); Hemoglobin 9.5 g/dL (14.0-18.0); Immature Granulocyte Absolute 0.02 K/mm3 (0.00-0.031); Immature Granulocyte Percent A 0.4 % (0-0.5); Immature Platelet Fraction Pct 6.1 % (0.9-11.2); Lymphocytes Percent Auto 14.7 % (18.3-44.2); Mean Corpuscular HGB Conc 31.9 g/dl (32-36); Mean Corpuscular Hemoglobin 31.5 pg (26-34); Mean Corpuscular Volume 98.7 fl (80-100); Mean Platelet Volume 11.4 fl (7.4-10.4); Monocytes Absolute Auto 0.5 K/mm3 (0.1-0.6); Monocytes Percent Auto 9.6 % (2.6-8.5); Neutrophils Absolute Auto 3.8 K/mm3 (1.3-6.7); Neutrophils Percent Auto 69.3 % (45.5-73.1); Platelet Count Result 133 k/mm3 (150-375); Red Blood Count 3.02 M/mm3 (4.6-6.20); Red Cell Distribution Width 13.6 % (11.5-14.5); White Blood Count 5.4 K/mm3 (4.5-10.0)
[2022-08-15 06:33] LABS: Alanine Aminotransferase 20 U/L (6-50); Albumin Level 3.6 g/dL (3.5-5.1); Alkaline Phosphatase 77 U/L (38-126); Anion Gap 10 mmol/L (8-16); Aspartate Amino Transferase 51 U/L (17-59); Bilirubin,Total 1.7 mg/dL (0.2-1.3); Blood Urea Nitrogen 21 mg/dL (9-20); Calcium 8.9 mg/dL (8.4-10.2); Carbon Dioxide 23 mmol/L (22-30); Chloride 103 mmol/L (98-107); Estimated CRCL calculation 73 ml/min; Estimated Glomerular Filt Rate 56; Glucose 114 mg/dL (65-110); Magnesium 1.5 mg/dL (1.6-2.3); Potassium 3.8 mmol/L (3.4-5.0); Sodium 136 mmol/L (137-145)
[2022-08-15] MEDS: amLODIPine BESYLATE 5 MG TABLET BY MOUTH (08:33)
[2022-08-15] MEDS: ATORVASTATIN 20 MG TABLET PO (08:33)
[2022-08-15] MEDS: ENOXAPARIN 40 MG/0.4 ML SYRINGE SUB-Q (08:33)
[2022-08-15] MEDS: FOLIC ACID 1 MG TABLET PO (08:34)
[2022-08-15] MEDS: PANTOPRAZOLE 40 MG TABLET PO (08:34)
[2022-08-15] MEDS: GABAPENTIN 300 MG CAPSULE 600 MG PO ×3 (08:34→17:04)
--- NOTE | 2022-08-15 10:01 | PM.CNGS ---
Assessment and Plan Assessment and plan (1) Cellulitis of left lower limb: Code(s): L03.116 - Cellulitis of left lower limb Status: Acute Assessment and Plan: Patient has a localized area of cellulitis to the left lower leg. There is some swelling over this region but overall the leg appears soft and this appears to be superficial within the skin and subcutaneous region. I do not think compartment syndrome would be a high likelihood given the minimal amount of trauma he had to the region and no other supporting findings. While I do not have the ability to check compartment pressures, I did not think it is of high concern at this time. Could consider a CT the left lower extremity if there are worsening findings, however his white blood count is normal and kidney function is improving. Continue supportive care and medical treatment at this time. Will sign off. (2) Chronic gout of multiple sites: Code(s): M1A.09X0 - Idiopathic chronic gout, multiple sites, without tophus (tophi) Status: Acute (3) Essential (primary) hypertension: Code(s): I10 - Essential (primary) hypertension Status: Acute (4) Chronic kidney disease, stage 3: Code(s): N18.30 - Chronic kidney disease, stage 3 unspecified Status: Acute History of Present Illness Consult details Consult date: 08/15/22 Reason for consult: other (possible compartment syndrome) Requesting physician: Emmett Ponce MD Narrative: this is a 62-year-old man who I am asked to evaluate for possible left lower extremity compartment syndrome. He has a history of a contusion to his left lower leg 1 week ago and has had swelling and pain since. He was having worsening redness to his leg which was concerning for cellulitis. He presented to the emergency department with worsening symptoms on 08/13/2022. He was admitted for antibiotics and further treatment. He was also noted to have an elevated creatinine level compared to his baseline. Nephrology has been consulted and is following patient. I was asked to evaluate the patient for possible compartment syndrome. He does have some localized pain to the area where the contusion happened. He has some bruising extending down to his heel. He denies any numbness or paresthesias to his toes. He denies any worsening pain with dorsiflexion or plantar flexion of his foot. Review of Systems Review of Systems: All systems reviewed & are unremarkable except as noted in HPI and below Eyes: Eyes: Denies change in vision ENT: Denies hearing loss, Denies neck pain and Denies sore throat Cardiovascular: Cardiovascular: Denies chest pain and Denies dyspnea Respiratory: Respiratory: Denies cough, Denies dyspnea and Denies wheezing Gastrointestinal: Gastrointestinal: Denies change in bowel habits, Denies nausea and Denies vomiting Genitourinary: Genitourinary: Denies hematuria and Denies dysuria Musculoskeletal: Musculoskeletal: Reports as per HPI, Denies arthralgias and Denies neck pain Allergic/Immunologic: Allergic/Immunologic: Denies wheezing [facility] Past Medical History Medical History Acute renal insufficiency Anemia Anxiety Benign essential hypertension BMI 32.0-32.9,adult Cellulitis of great toe of right foot Chronic kidney disease, stage 3 Colon cancer screening Complete tear of rotator cuff Dupuytren's contracture Elevated glucose Elevated LFTs Elevated serum creatinine Elevated serum GGT level Elevated TSH Encounter for preventive health examination Erectile dysfunction Gouty arthritis Hyperglycemia Hyperlipidemia Nausea and vomiting Pain and swelling of toe of right foot Peripheral neuropathy Prostate cancer screening Rheumatoid arthritis Right hallux osteomyelitis Vitamin B12 deficiency Vitamin D deficiency Surgical History Surgical History H/O toe surgery
--- NOTE | 2022-08-15 11:35 | P.PNIM_ITS ---
Progress Note: A&P Assessment and Plan (1) Cellulitis of left lower limb: Code(s): L03.116 - Cellulitis of left lower limb Status: Acute Assessment and Plan: * Left foot x-ray with moderate polyarticular away. Most advanced at the 1st MTP joint. * Continue with Ancef and vancomycin as per cellulitis protocol. * Blood cultures pending * pain meds p.r.n. * continue to monitor daily labs and vital signs. * Venous Doppler negative bilaterally. * At the request of Nephrology, General surgery came and evaluated patient for possible compartment syndrome, however that is not a high concern of this patient and they have signed off the case. No further testing to be done at this time For compartment syndrome. (2) RADHA (acute kidney injury): Code(s): N17.9 - Acute kidney failure, unspecified Status: Acute Assessment and Plan: * Etiology most likely acute infection * acute on chronic renal failure stage 3 * hold Lasix losartan and allopurinol * renal ultrasound pending * nephrology managing along with medicine * continue to trend creatinine. It has improved from 2.0 yesterday to 1.3 today. Baseline creatinine is 1.1-1.6. * Continue IV fluids and monitor. (3) Chronic gout of multiple sites: Code(s): M1A.09X0 - Idiopathic chronic gout, multiple sites, without tophus (tophi) Status: Acute Assessment and Plan: * Holding allopurinol in setting of RADHA (4) Essential (primary) hypertension: Code(s): I10 - Essential (primary) hypertension Status: Acute Assessment and Plan: * continuing to hold Lasix and losartan in setting of RADHA. (5) Open wound of right great toe: Qualifiers: Encounter type: subsequent encounter Qualified Code(s): S91.101D - Unspecified open wound of right great toe without damage to nail, subsequent encounter Code(s): S91.101A - Unspecified open wound of right great toe without damage to nail, initial encounter Status: Acute Assessment and Plan: * The patient stated that he has been seeing his button breaker operator Dr. Green * it has taken the right great toe 3 months to heal and is nearly now closed. * Physical exam of this area is benign. * Patient may continue to utilize topical ointment has been prescribed. He may also continue to use postop shoe. (6) Hyperlipidemia: Qualifiers: Hyperlipidemia type: mixed hyperlipidemia Qualified Code(s): E78.2 - Mixed hyperlipidemia Code(s): E78.5 - Hyperlipidemia, unspecified Status: Acute Assessment and Plan: * Continue statin therapy (7) Peripheral neuropathy: Qualifiers: Peripheral neuropathy type: polyneuropathy, unspecified Qualified Code(s): G62.9 - Polyneuropathy, unspecified Code(s): G62.9 - Polyneuropathy, unspecified Status: Acute Assessment and Plan: * continue gabapentin (8) Anemia: Code(s): D64.9 - Anemia, unspecified Status: Acute Assessment and Plan: * likely chronic. Hemoglobin 9.5 today. * Continue to monitor. * No overt bleeding. (9) Hypomagnesemia: Code(s): E83.42 - Hypomagnesemia Status: Resolved Assessment and Plan: * Resolved with magnesium of 1.5 today. * Continue to monitor. (10) Subclinical hypothyroidism: Code(s): E03.8 - Other specified hypothyroidism Status: Acute Assessment and Plan: * TSH elevated at 11.20 * free T4 is 1.40. * Patient asymptomatic Time Spent With Patient Time with
--- NOTE | 2022-08-15 11:35 | PM.IMPN ---
Progress Note: A&P Assessment and Plan (1) Cellulitis of left lower limb: Code(s): L03.116 - Cellulitis of left lower limb Status: Acute Assessment and Plan: Left foot x-ray with moderate polyarticular away. Most advanced at the 1st MTP joint. Continue with Ancef and vancomycin as per cellulitis protocol. Blood cultures pending pain meds p.r.n. continue to monitor daily labs and vital signs. Venous Doppler negative bilaterally. At the request of Nephrology, General surgery came and evaluated patient for possible compartment syndrome, however that is not a high concern of this patient and they have signed off the case. No further testing to be done at this time For compartment syndrome. (2) RADHA (acute kidney injury): Code(s): N17.9 - Acute kidney failure, unspecified Status: Acute Assessment and Plan: Etiology most likely acute infection acute on chronic renal failure stage 3 hold Lasix losartan and allopurinol renal ultrasound pending nephrology managing along with medicine continue to trend creatinine. It has improved from 2.0 yesterday to 1.3 today. Baseline creatinine is 1.1-1.6. Continue IV fluids and monitor. (3) Chronic gout of multiple sites: Code(s): M1A.09X0 - Idiopathic chronic gout, multiple sites, without tophus (tophi) Status: Acute Assessment and Plan: Holding allopurinol in setting of RADHA (4) Essential (primary) hypertension: Code(s): I10 - Essential (primary) hypertension Status: Acute Assessment and Plan: continuing to hold Lasix and losartan in setting of RADHA. (5) Open wound of right great toe: Qualifiers: Encounter type: subsequent encounter Qualified Code(s): S91.101D - Unspecified open wound of right great toe without damage to nail, subsequent encounter Code(s): S91.101A - Unspecified open wound of right great toe without damage to nail, initial encounter Status: Acute Assessment and Plan: The patient stated that he has been seeing his cigar making machine operator Dr. Green it has taken the right great toe 3 months to heal and is nearly now closed. Physical exam of this area is benign. Patient may continue to utilize topical ointment has been prescribed. He may also continue to use postop shoe. (6) Hyperlipidemia: Qualifiers: Hyperlipidemia type: mixed hyperlipidemia Qualified Code(s): E78.2 - Mixed hyperlipidemia Code(s): E78.5 - Hyperlipidemia, unspecified Status: Acute Assessment and Plan: Continue statin therapy (7) Peripheral neuropathy: Qualifiers: Peripheral neuropathy type: polyneuropathy, unspecified Qualified Code(s): G62.9 - Polyneuropathy, unspecified Code(s): G62.9 - Polyneuropathy, unspecified Status: Acute Assessment and Plan: continue gabapentin (8) Anemia: Code(s): D64.9 - Anemia, unspecified Status: Acute Assessment and Plan: likely chronic. Hemoglobin 9.5 today. Continue to monitor. No overt bleeding. (9) Hypomagnesemia: Code(s): E83.42 - Hypomagnesemia Status: Resolved Assessment and Plan: Resolved with magnesium of 1.5 today. Continue to monitor. (10) Subclinical hypothyroidism: Code(s): E03.8 - Other specified hypothyroidism Status: Acute Assessment and Plan: TSH elevated at 11.20 free T4 is 1.40. Patient asymptomatic Time Spent With Patient Time with patient: 15 - 25 minutes Subjective Date/time seen: 08/15/22 1030 This patient was examined at the bedside in interval assessment. He reports no new symptoms today. His pain is about same. He does endorse that he believes the redness is starting to improve only. He has no distal numbness or tingling that is new for him and nothing new to report. Review of Systems Review of Systems: All systems reviewed & are u
--- NOTE | 2022-08-15 12:02 | PM.PNNEP ---
Progress Note: A&P Assessment and Plan (1) RADHA (acute kidney injury): Code(s): N17.9 - Acute kidney failure, unspecified Status: Acute Assessment and Plan: The patient has acute kidney injury. his baseline creatinine is normal. His creatinine has been up and down over last couple of years. Lately it has been relatively normal except when under stress. Renal ultrasound shows right renal cyst. Urinalysis is unremarkable. Urine electrolytes are Non-pre renal CPK is normal at 57. Even those urine electrolytes were unremarkable (these the patient was on diuretics ), I suspect that this was all pre renal azotemia. He is off his diuretics and is getting IV fluids. He is eating well so I think we can cut back on the IV fluids. he continues to get antibiotics. Will cut back the IV fluids and get some more labs tomorrow. (2) Cellulitis of left lower limb: Code(s): L03.116 - Cellulitis of left lower limb Status: Acute Assessment and Plan: The patient is getting antibiotics. surgery saw the patient. Thank you. (3) Anemia: Code(s): D64.9 - Anemia, unspecified Status: Acute Assessment and Plan: The patient has a mild anemia. Will keep an eye on this. Folic acid is okay. B12 is low. Will give B12 supplement. (4) Chronic gout of multiple sites: Code(s): M1A.09X0 - Idiopathic chronic gout, multiple sites, without tophus (tophi) Status: Acute Assessment and Plan: Uric acid level is good. He will still need his allopurinol. I will restart this. . He only needs once a day I think though. (5) Essential (primary) hypertension: Code(s): I10 - Essential (primary) hypertension Status: Acute Assessment and Plan: His blood pressure is under good control. will stop amlodipine. Tomorrow we can start metoprolol. (6) Rheumatoid arthritis: Qualifiers: Rheumatoid arthritis location: multiple sites Rheumatoid factor presence: unspecified presence Qualified Code(s): M06.9 - Rheumatoid arthritis, unspecified Code(s): M06.9 - Rheumatoid arthritis, unspecified Status: Acute (7) Vitamin B12 deficiency: Code(s): E53.8 - Deficiency of other specified B group vitamins Status: Acute Assessment and Plan: Level is low. Will start cyanocobalamin (8) Vitamin D deficiency: Code(s): E55.9 - Vitamin D deficiency, unspecified Status: Acute Assessment and Plan: vitamin-D level is normal (9) Hyperlipidemia: Qualifiers: Hyperlipidemia type: mixed hyperlipidemia Qualified Code(s): E78.2 - Mixed hyperlipidemia Code(s): E78.5 - Hyperlipidemia, unspecified Status: Acute Assessment and Plan: on atorvastatin Subjective Date/time seen: 08/15/22 12:02 Interval history: Segundo is feeling better today. There is less discomfort in his leg. No chest pain or shortness of breath. No abdominal issues. Food tastes terrible but he does have an appetite. No urinary problems. Review of Systems Cardiovascular: Cardiovascular: Reports no additional cardiovascular complaints Respiratory: Respiratory: Reports no additional respiratory complaints Gastrointestinal: Gastrointestinal: Reports no additional gastrointestinal complaints Genitourinary: Genitourinary: Reports no additional male genitourinary complaints Exam Narrative: WDWN in NAD skin no rash head ncat lungs clear cor reg no rub abd BS+ nontender and soft ext 1+ edema in the involved leg. Erythema somewhat better. Objective Data Vital Signs Vital Signs: Vital Signs - 24 hr 08/14/22 14:00 08/14/22 20:20 08/15/22 05:53 Temperature 36.3 C L 36.8 C 36.7 C Pulse Rate 83 93 89 Respiratory Rate 14 20 16 Blood Pressure 111/72 128/73 117/71 Pulse Oximetry 98 96 96 Oxygen Delivery 08/15/22 08:00 Temperature Pulse Rate Res
[2022-08-15] MEDS: SODIUM CHLORIDE 0.9% IV 1,000 ML 50 ML IV CONT (13:09)
[2022-08-15] MEDS: CYANOCOBALAMIN 1,000 MCG TABLET 1000 MCG PO (13:32)
[2022-08-15] MEDS: allopurinoL 300 MG TABLET PO (13:32)
[2022-08-15 13:39] VITALS: BP 138/76; PULSE 96; RESP 16; TEMP 36.2; O2SAT 96
[2022-08-15 19:58] VITALS: BP 116/74; PULSE 87; RESP 18; TEMP 36.6; O2SAT 96
[2022-08-16] MEDS: HYDROcodone/acetaminophen (*CRX) 5-325 MG TABLET 1 TAB PO ×5 (01:09→22:21)
[2022-08-16 04:23] VITALS: BP 104/67; PULSE 72; RESP 20; TEMP 36.8; O2SAT 95
[2022-08-16 05:36] LABS: Basophils Absolute Auto 0.1 K/mm3 (0.0-0.1); Basophils Percent Auto 0.9 % (0.2-1.2); Eosinophils Absolute Auto 0.3 K/mm3 (0-0.3); Eosinophils Percent Auto 5.7 % (0-4.4); Hematocrit 26.3 % (42.0-52.0); Hemoglobin 8.4 g/dL (14.0-18.0); Immature Granulocyte Absolute 0.02 K/mm3 (0.00-0.031); Immature Granulocyte Percent A 0.4 % (0-0.5); Immature Platelet Fraction Pct 5.3 % (0.9-11.2); Lymphocytes Absolute Auto 0.96 K/mm3 (0.9-3.2); Lymphocytes Percent Auto 17.6 % (18.3-44.2); Mean Corpuscular HGB Conc 31.9 g/dl (32-36); Mean Corpuscular Hemoglobin 32.2 pg (26-34); Mean Corpuscular Volume 100.8 fl (80-100); Mean Platelet Volume 11.2 fl (7.4-10.4); Monocytes Absolute Auto 0.6 K/mm3 (0.1-0.6); Monocytes Percent Auto 11.6 % (2.6-8.5); Neutrophils Absolute Auto 3.5 K/mm3 (1.3-6.7); Neutrophils Percent Auto 63.8 % (45.5-73.1); Platelet Count Result 122 k/mm3 (150-375); Red Blood Count 2.61 M/mm3 (4.6-6.20); Red Cell Distribution Width 13.4 % (11.5-14.5); White Blood Count 5.4 K/mm3 (4.5-10.0)
[2022-08-16 05:46] LABS: Alanine Aminotransferase 20 U/L (6-50); Albumin Level 3.3 g/dL (3.5-5.1); Alkaline Phosphatase 64 U/L (38-126); Anion Gap 8 mmol/L (8-16); Aspartate Amino Transferase 58 U/L (17-59); Bilirubin,Total 0.8 mg/dL (0.2-1.3); Blood Urea Nitrogen 16 mg/dL (9-20); Calcium 8.6 mg/dL (8.4-10.2); Carbon Dioxide 25 mmol/L (22-30); Chloride 104 mmol/L (98-107); Estimated CRCL calculation 79 ml/min; Estimated Glomerular Filt Rate > 60; Glucose 108 mg/dL (65-110); Magnesium 1.4 mg/dL (1.6-2.3); Potassium 3.9 mmol/L (3.4-5.0); Sodium 137 mmol/L (137-145)
[2022-08-16] MEDS: MAGNESIUM SULF 2 GM/WATER 50ML 2 GM/50 ML BAG IVPB (06:55)
[2022-08-16 08:07] VITALS: BP 135/71; PULSE 80; RESP 14; O2SAT 96
[2022-08-16 08:09] VITALS: PULSE 80
[2022-08-16] MEDS: allopurinoL 300 MG TABLET PO (08:09)
[2022-08-16] MEDS: FOLIC ACID 1 MG TABLET PO (08:09)
[2022-08-16] MEDS: PANTOPRAZOLE 40 MG TABLET PO (08:09)
[2022-08-16] MEDS: CYANOCOBALAMIN 1,000 MCG TABLET 1000 MCG PO (08:09)
[2022-08-16] MEDS: METOPROLOL SUCCINATE EXT REL 50 MG TABCR PO (08:09)
[2022-08-16] MEDS: ATORVASTATIN 20 MG TABLET PO (08:09)
[2022-08-16] MEDS: GABAPENTIN 300 MG CAPSULE 600 MG PO ×3 (08:10→17:30)
[2022-08-16] MEDS: ENOXAPARIN 40 MG/0.4 ML SYRINGE SUB-Q (08:10)
[2022-08-16 09:21] VITALS: O2SAT 98
--- NOTE | 2022-08-16 10:22 | P.PNIM_ITS ---
Progress Note: A&P Assessment and Plan (1) Cellulitis of left lower limb: Code(s): L03.116 - Cellulitis of left lower limb Status: Acute Assessment and Plan: * Left foot x-ray with moderate polyarticular away. Most advanced at the 1st MTP joint. * Continue with Ancef and vancomycin as per cellulitis protocol. * Blood cultures pending * pain meds p.r.n. * continue to monitor daily labs and vital signs. * Venous Doppler negative bilaterally on admission. * At the request of Nephrology, General surgery came and evaluated patient for possible compartment syndrome, however that is not a high concern of this patient and they have signed off the case. No further testing to be done at this time For compartment syndrome. * On 08/16, cellulitis is improving with regards to erythema and warmth. Culture results still pending. However, still very edematous. Will repeat Venous dopplers to ensure a DVT has not formed since admission. Will also instruct to tami wrap leg for edema. Possible etiology is that pt. has not been receiving his Lasix as it has been on hold secondary to his RADHA. (2) RADHA (acute kidney injury): Code(s): N17.9 - Acute kidney failure, unspecified Status: Resolved Assessment and Plan: * Etiology most likely acute infection * acute on chronic renal failure stage 3 * hold Lasix losartan and allopurinol * renal ultrasound pending * nephrology managing along with medicine * continue to trend creatinine. It has improved from 2.0 yesterday to 1.3 today. Baseline creatinine is 1.1-1.6. * Continue IV fluids and monitor. * 08/16/22: Resolved (3) Chronic gout of multiple sites: Code(s): M1A.09X0 - Idiopathic chronic gout, multiple sites, without tophus (tophi) Status: Acute Assessment and Plan: * Holding allopurinol in setting of RADHA * Restarting Allopurinol on 08/16 as RADHA is resolved (4) Essential (primary) hypertension: Code(s): I10 - Essential (primary) hypertension Status: Acute Assessment and Plan: * continuing to hold Lasix and losartan in setting of RADHA. * Restarting both Lasix and Losartan on 08/16 as RADHA is resolved (5) Open wound of right great toe: Qualifiers: Encounter type: subsequent encounter Qualified Code(s): S91.101D - Unspecified open wound of right great toe without damage to nail, subsequent encounter Code(s): S91.101A - Unspecified open wound of right great toe without damage to nail, initial encounter Status: Acute Assessment and Plan: * Chronic * The patient stated that he has been seeing his program director/music director Dr. Green * it has taken the right great toe 3 months to heal and is nearly now closed. * Physical exam of this area is benign. * Patient may continue to utilize topical ointment has been prescribed. He may also continue to use postop shoe. (6) Hyperlipidemia: Qualifiers: Hyperlipidemia type: mixed hyperlipidemia Qualified Code(s): E78.2 - Mixed hyperlipidemia Code(s): E78.5 - Hyperlipidemia, unspecified Status: Acute Assessment and Plan: * Continue statin therapy (7) Peripheral neuropathy: Qualifiers: Peripheral neuropathy type: polyneuropathy, unspecified Qualified Code(s): G62.9 - Polyneuropathy, unspecified Code(s): G62.9 - Polyneuropathy, unspecified Status: Acute Assessment and Plan: * continue gabapentin (8) Anemia: Code(s): D64.9 - Anemia, unspecified Status: Acute Assessment and Plan: * likely chron
--- NOTE | 2022-08-16 10:22 | PM.IMPN ---
Progress Note: A&P Assessment and Plan (1) Cellulitis of left lower limb: Code(s): L03.116 - Cellulitis of left lower limb Status: Acute Assessment and Plan: Left foot x-ray with moderate polyarticular away. Most advanced at the 1st MTP joint. Continue with Ancef and vancomycin as per cellulitis protocol. Blood cultures pending pain meds p.r.n. continue to monitor daily labs and vital signs. Venous Doppler negative bilaterally on admission. At the request of Nephrology, General surgery came and evaluated patient for possible compartment syndrome, however that is not a high concern of this patient and they have signed off the case. No further testing to be done at this time For compartment syndrome. On 08/16, cellulitis is improving with regards to erythema and warmth. Culture results still pending. However, still very edematous. Will repeat Venous dopplers to ensure a DVT has not formed since admission. Will also instruct to tami wrap leg for edema. Possible etiology is that pt. has not been receiving his Lasix as it has been on hold secondary to his RADHA. (2) RADHA (acute kidney injury): Code(s): N17.9 - Acute kidney failure, unspecified Status: Resolved Assessment and Plan: Etiology most likely acute infection acute on chronic renal failure stage 3 hold Lasix losartan and allopurinol renal ultrasound pending nephrology managing along with medicine continue to trend creatinine. It has improved from 2.0 yesterday to 1.3 today. Baseline creatinine is 1.1-1.6. Continue IV fluids and monitor. 08/16/22: Resolved (3) Chronic gout of multiple sites: Code(s): M1A.09X0 - Idiopathic chronic gout, multiple sites, without tophus (tophi) Status: Acute Assessment and Plan: Holding allopurinol in setting of RADHA Restarting Allopurinol on 08/16 as RADHA is resolved (4) Essential (primary) hypertension: Code(s): I10 - Essential (primary) hypertension Status: Acute Assessment and Plan: continuing to hold Lasix and losartan in setting of RADHA. Restarting both Lasix and Losartan on 08/16 as RADHA is resolved (5) Open wound of right great toe: Qualifiers: Encounter type: subsequent encounter Qualified Code(s): S91.101D - Unspecified open wound of right great toe without damage to nail, subsequent encounter Code(s): S91.101A - Unspecified open wound of right great toe without damage to nail, initial encounter Status: Acute Assessment and Plan: Chronic The patient stated that he has been seeing his lemon grower Dr. Green it has taken the right great toe 3 months to heal and is nearly now closed. Physical exam of this area is benign. Patient may continue to utilize topical ointment has been prescribed. He may also continue to use postop shoe. (6) Hyperlipidemia: Qualifiers: Hyperlipidemia type: mixed hyperlipidemia Qualified Code(s): E78.2 - Mixed hyperlipidemia Code(s): E78.5 - Hyperlipidemia, unspecified Status: Acute Assessment and Plan: Continue statin therapy (7) Peripheral neuropathy: Qualifiers: Peripheral neuropathy type: polyneuropathy, unspecified Qualified Code(s): G62.9 - Polyneuropathy, unspecified Code(s): G62.9 - Polyneuropathy, unspecified Status: Acute Assessment and Plan: continue gabapentin (8) Anemia: Code(s): D64.9 - Anemia, unspecified Status: Acute Assessment and Plan: likely chronic. Hemoglobin 8.4 today. Continue to monitor. No overt bleeding. (9) Hypomagnesemia: Code(s): E83.42 - Hypomagnesemia Status: Acute Assessment and Plan: Resolved with magnesium of 1.4 today. 2G Mag rider given today. Continue to monitor. (10) Subclinical hypothyroidism: Code(s): E03.8 - Other specified hypothyroidism Status: Acute Assessment
[2022-08-16 14:00] VITALS: BP 114/65; PULSE 72; RESP 14; TEMP 36.9; O2SAT 96
--- NOTE | 2022-08-16 14:39 | P.PNNP_ITS ---
Progress Note: A&P Assessment and Plan (1) RADHA (acute kidney injury): Code(s): N17.9 - Acute kidney failure, unspecified Status: Resolved Assessment and Plan: * creatinine has been up and down over last couple of years * recently, it has been relatively normal except when under stress * evaluation to date: * renal ultrasound shows right renal cyst * urinalysis is unremarkable * urine electrolytes are non-pre renal * CPK is normal * suspect that this was all pre renal azotemia * he is off his diuretics * creatinine better s/p IV fluids * follow repeat labs (2) Cellulitis of left lower limb: Code(s): L03.116 - Cellulitis of left lower limb Status: Acute Assessment and Plan: * slow clinical improvemnt * on antibiotics * pain control (3) Anemia: Code(s): D64.9 - Anemia, unspecified Status: Acute Assessment and Plan: * likely due to acute infection * follow trend of H/H * on B12 supplements (4) Essential (primary) hypertension: Code(s): I10 - Essential (primary) hypertension Status: Chronic Assessment and Plan: * reasonable control * follow trend of hemodynamics Will continue to follow. Subjective Date/time seen: 08/16/22 14:39 Chart reviewed - assuming care from Dr. Ponce; major complaint at the time of my visit was that of pain in his left lower extremity; however, overall, he does state he feels better; no apparent issues/events overnight or earlier this AM. Exam Narrative: General: WD/WN male in NAD Heart: normal S1 and S2; no rub Lungs: clear to auscultation Abdomen: soft, nontender, nondistended, positive bowel sounds Extremities: no cyanosis or clubbing; 1+ edema in LLE Skin: reduced erythema in LLE Objective Data Vital Signs Vital Signs: Vital Signs Temp Pulse Resp BP Pulse Ox O2 Del Method 08/16/22 14:00 36.9 C 72 14 114/65 96 08/16/22 08:00 Room Air 08/16/22 09:21 98 Room Air 08/16/22 08:09 80 08/16/22 08:07 80 14 135/71 96 08/16/22 04:23 36.8 C 72 20 104/67 95 08/15/22 19:58 36.6 C 87 18 116/74 96 Intake/Output Intake/Output: Intake & Output 08/13/22 08/14/22 08/15/22 08/16/22 23:59 23:59 23:59 23:59 Intake Total 150 5260 4220 2100 Output Total 400 2700 2725 800 Balance -250 2560 1495 1300 Meds/Results Medications: Active Medications Generic Name Dose Route Start Last Admin Trade Name Freq PRN Reason Stop Dose Admin Acetaminophen 650 mg 08/13/22 15:06 Acetaminophen 325 Mg Tablet PO Q4H PRN Mild Pain (1-3) or Fever Hydrocodone Bitart/Acetaminophen 1 tab 08/13/22 15:06 08/16/22 14:32 Hydrocodone/Acetaminophen (*Crx) 5-325 Mg Tablet PO 1 tab Q4H PRN Administration Pain Rated 4-6 Allopurinol 300 mg 08/15/22 12:15 08/16/22 08:09 Allopurinol 300 Mg Tablet PO 300 mg DAILY@0800 [place] Administration Atorvastatin Calcium 20 mg 08/14/22 09:00 08/16/22 08:09 Atorvastatin 20 Mg Tablet PO 20 mg DAILY [place] Administration Cyanocobalamin 1,000 mcg 08/15/22 12:10 07/23
--- NOTE | 2022-08-16 14:39 | PM.PNNEP ---
Progress Note: A&P Assessment and Plan (1) RADHA (acute kidney injury): Code(s): N17.9 - Acute kidney failure, unspecified Status: Resolved Assessment and Plan: creatinine has been up and down over last couple of years recently, it has been relatively normal except when under stress evaluation to date: renal ultrasound shows right renal cyst urinalysis is unremarkable urine electrolytes are non-pre renal CPK is normal suspect that this was all pre renal azotemia he is off his diuretics creatinine better s/p IV fluids follow repeat labs (2) Cellulitis of left lower limb: Code(s): L03.116 - Cellulitis of left lower limb Status: Acute Assessment and Plan: slow clinical improvemnt on antibiotics pain control (3) Anemia: Code(s): D64.9 - Anemia, unspecified Status: Acute Assessment and Plan: likely due to acute infection follow trend of H/H on B12 supplements (4) Essential (primary) hypertension: Code(s): I10 - Essential (primary) hypertension Status: Chronic Assessment and Plan: reasonable control follow trend of hemodynamics Will continue to follow. Subjective Date/time seen: 08/16/22 14:39 Chart reviewed - assuming care from Dr. Ponce; major complaint at the time of my visit was that of pain in his left lower extremity; however, overall, he does state he feels better; no apparent issues/events overnight or earlier this AM. Exam Narrative: General: WD/WN male in NAD Heart: normal S1 and S2; no rub Lungs: clear to auscultation Abdomen: soft, nontender, nondistended, positive bowel sounds Extremities: no cyanosis or clubbing; 1+ edema in LLE Skin: reduced erythema in LLE Objective Data Vital Signs Vital Signs: Vital Signs Temp Pulse Resp BP Pulse Ox O2 Del Method 08/16/22 14:00 36.9 C 72 14 114/65 96 08/16/22 08:00 Room Air 08/16/22 09:21 98 Room Air 08/16/22 08:09 80 08/16/22 08:07 80 14 135/71 96 08/16/22 04:23 36.8 C 72 20 104/67 95 08/15/22 19:58 36.6 C 87 18 116/74 96 Intake/Output Intake/Output: Intake & Output 09/23/22 08/14/22 08/15/22 08/16/22 23:59 23:59 23:59 23:59 Intake Total 150 5260 4220 2100 Output Total 400 2700 2725 800 Balance -250 2560 1495 1300 Meds/Results Medications: Active Medications Generic Name Dose Route Start Last Admin Trade Name Freq PRN Reason Stop Dose Admin Acetaminophen 650 mg 08/13/22 15:06 Acetaminophen 325 Mg Tablet PO Q4H PRN Mild Pain (1-3) or Fever Hydrocodone Bitart/Acetaminophen 1 tab 08/13/22 15:06 08/16/22 14:32 Hydrocodone/Acetaminophen (*Crx) 5-325 Mg Tablet PO 1 tab Q4H PRN Administration Pain Rated 4-6 Allopurinol 300 mg 08/15/22 12:15 08/16/22 08:09 Allopurinol 300 Mg Tablet PO 300 mg DAILY@0800 [place] Administration Atorvastatin Calcium 20 mg 08/14/22 09:00 08/16/22 08:09 Atorvastatin 20 Mg Tablet PO 20 mg DAILY [place] Administration Cyanocobalamin 1,000 mcg 08/15/22 12:10 08/16/22 08:09 Cyanocobalamin 1,000 Mcg Tablet PO 1,000 mcg QAM [place] Administration Enoxaparin Sodium 40 mg 08/14/22 09:00 08/16/22 08:10 Enoxaparin 40 Mg/0.4 Ml Syringe SUB-Q 40 mg DAILY [place] Administration Folic Acid 1 mg 08/14/22 09:00 08/16/22 08:09 Folic Acid 1 Mg Tablet PO 1 mg DAILY [place] Administration Furosemide 20 mg 08/17/22 09:00 Furosemide 20 Mg Tablet PO DAILY [place] Gabapentin 600 mg 08/14/22 09:00 08/16/22 17:30 Gabapentin 300 Mg Capsule PO 600 mg TID [place] Administration Cefazolin Sodium 1 gm in 50 mls @ 100 mls/hr 08/13/22 22:00 08/16/22 15:17 Ancef 1 Gm/D5w 50 Ml Pm IVPB Infused Q8H [place] Infusion Losartan Potassium 100 mg 08/17/22 09:00 Losartan Potassium 100 Mg Tablet PO DAILY [place] Metoprolol Succinate 50 mg 08/16/22 09:00 08/16/22 08:09 Met
[2022-08-16] MEDS: MORPHINE SULFATE (*CRX) 4 MG/ML INJ IV PUSH ×3 (18:40→23:58)
[2022-08-16 21:35] VITALS: BP 122/80; PULSE 76; RESP 18; TEMP 37.3; O2SAT 100
[2022-08-17 05:18] VITALS: BP 139/82; PULSE 90; RESP 18; TEMP 37.1; O2SAT 99
[2022-08-17] MEDS: HYDROcodone/acetaminophen (*CRX) 5-325 MG TABLET 1 TAB PO ×5 (05:20→23:08)
[2022-08-17 08:18] VITALS: BP 143/78; PULSE 96; RESP 14; O2SAT 100
[2022-08-17 08:20] VITALS: PULSE 96
[2022-08-17] MEDS: allopurinoL 300 MG TABLET PO (08:20)
[2022-08-17] MEDS: CYANOCOBALAMIN 1,000 MCG TABLET 1000 MCG PO (08:20)
[2022-08-17] MEDS: METOPROLOL SUCCINATE EXT REL 50 MG TABCR PO (08:20)
[2022-08-17] MEDS: GABAPENTIN 300 MG CAPSULE 600 MG PO ×3 (08:20→17:38)
[2022-08-17] MEDS: FUROSEMIDE 20 MG TABLET PO (08:21)
[2022-08-17] MEDS: LOSARTAN POTASSIUM 100 MG TABLET PO (08:21)
[2022-08-17] MEDS: FOLIC ACID 1 MG TABLET PO (08:21)
[2022-08-17] MEDS: ATORVASTATIN 20 MG TABLET PO (08:21)
[2022-08-17] MEDS: PANTOPRAZOLE 40 MG TABLET PO (08:21)
[2022-08-17 08:41] LABS: Hematocrit 29.5 % (42.0-52.0); Hemoglobin 9.5 g/dL (14.0-18.0)
[2022-08-17 08:55] LABS: Anion Gap 9 mmol/L (8-16); Blood Urea Nitrogen 11 mg/dL (9-20); Calcium 9.3 mg/dL (8.4-10.2); Carbon Dioxide 25 mmol/L (22-30); Chloride 103 mmol/L (98-107); Estimated CRCL calculation 93 ml/min; Estimated Glomerular Filt Rate > 60; Glucose 108 mg/dL (65-110); Magnesium 1.5 mg/dL (1.6-2.3); Potassium 3.9 mmol/L (3.4-5.0); Sodium 137 mmol/L (137-145)
--- NOTE | 2022-08-17 12:09 | P.PNNP_ITS ---
Progress Note: A&P Assessment and Plan (1) RADHA (acute kidney injury): Code(s): N17.9 - Acute kidney failure, unspecified Status: Resolved Assessment and Plan: * creatinine has been up and down over last couple of years * recently, it has been relatively normal except when under stress * evaluation to date: * renal ultrasound shows right renal cyst * urinalysis is unremarkable * urine electrolytes are non-pre renal * CPK is normal * suspect that this was all pre renal azotemia * he is off his diuretics * creatinine better s/p IV fluids * follow repeat labs (2) Cellulitis of left lower limb: Code(s): L03.116 - Cellulitis of left lower limb Status: Acute Assessment and Plan: * slow clinical improvemnt * on antibiotics * pain control (3) Anemia: Code(s): D64.9 - Anemia, unspecified Status: Acute Assessment and Plan: * likely due to acute infection * follow trend of H/H * on B12 supplements (4) Essential (primary) hypertension: Code(s): I10 - Essential (primary) hypertension Status: Chronic Assessment and Plan: * reasonable control * follow trend of hemodynamics Will continue to follow. Subjective Date/time seen: 08/17/22 12:09 Some issues with pain related to his lower extremity but is tolerable with current pain medications; no other apparent issues/events overnight or earlier this morning; overall, his condition seems to have improved in comparison to admission. Exam Narrative: General: WD/WN male in NAD Heart: normal S1 and S2; no rub Lungs: clear to auscultation Abdomen: soft, nontender, nondistended, positive bowel sounds Extremities: no cyanosis or clubbing; 1+ edema in LLE Skin: reduced erythema in LLE Objective Data Vital Signs Vital Signs: Vital Signs Temp Pulse Resp BP Pulse Ox O2 Del Method 08/17/22 08:25 Room Air 08/17/22 08:20 96 08/17/22 08:18 96 14 143/78 H 100 08/17/22 05:18 37.1 C 90 18 139/82 99 08/16/22 21:35 37.3 C 76 18 122/80 100 08/16/22 14:00 36.9 C 72 14 114/65 96 Intake/Output Intake/Output: Intake & Output 08/14/22 08/15/22 08/16/22 09/27/22 23:59 23:59 23:59 23:59 Intake Total 5260 4220 3240 860 Output Total 2700 2725 1875 1000 Balance 2560 1495 1365 -140 Meds/Results Medications: Active Medications Generic Name Dose Route Start Last Admin Trade Name Freq PRN Reason Stop Dose Admin Acetaminophen 650 mg 08/13/22 15:06 Acetaminophen 325 Mg Tablet PO Q4H PRN Mild Pain (1-3) or Fever Hydrocodone Bitart/Acetaminophen 1 tab 08/13/22 15:06 08/17/22 09:27 Hydrocodone/Acetaminophen (*Crx) 5-325 Mg Tablet PO 1 tab Q4H PRN Administration Pain Rated 4-6 Allopurinol 300 mg 08/15/22 12:15 08/17/22 08:20 Allopurinol 300 Mg Tablet PO 300 mg DAILY@0800 [place] Administration Atorvastatin Calcium 20 mg 08/14/22 09:00 08/17/22 08:21 Atorvastatin 20 Mg Tablet PO 20 mg DAILY [place] Administration Cyanocobalamin 1,000 mcg 08/15/22 12:10 08/17/22 08:20 Cya
--- NOTE | 2022-08-17 12:09 | PM.PNNEP ---
Progress Note: A&P Assessment and Plan (1) RADHA (acute kidney injury): Code(s): N17.9 - Acute kidney failure, unspecified Status: Resolved Assessment and Plan: creatinine has been up and down over last couple of years recently, it has been relatively normal except when under stress evaluation to date: renal ultrasound shows right renal cyst urinalysis is unremarkable urine electrolytes are non-pre renal CPK is normal suspect that this was all pre renal azotemia he is off his diuretics creatinine better s/p IV fluids follow repeat labs (2) Cellulitis of left lower limb: Code(s): L03.116 - Cellulitis of left lower limb Status: Acute Assessment and Plan: slow clinical improvemnt on antibiotics pain control (3) Anemia: Code(s): D64.9 - Anemia, unspecified Status: Acute Assessment and Plan: likely due to acute infection follow trend of H/H on B12 supplements (4) Essential (primary) hypertension: Code(s): I10 - Essential (primary) hypertension Status: Chronic Assessment and Plan: reasonable control follow trend of hemodynamics Will continue to follow. Subjective Date/time seen: 08/17/22 12:09 Some issues with pain related to his lower extremity but is tolerable with current pain medications; no other apparent issues/events overnight or earlier this morning; overall, his condition seems to have improved in comparison to admission. Exam Narrative: General: WD/WN male in NAD Heart: normal S1 and S2; no rub Lungs: clear to auscultation Abdomen: soft, nontender, nondistended, positive bowel sounds Extremities: no cyanosis or clubbing; 1+ edema in LLE Skin: reduced erythema in LLE Objective Data Vital Signs Vital Signs: Vital Signs Temp Pulse Resp BP Pulse Ox O2 Del Method 08/17/22 08:25 Room Air 08/17/22 08:20 96 08/17/22 08:18 96 14 143/78 H 100 08/17/22 05:18 37.1 C 90 18 139/82 99 08/16/22 21:35 37.3 C 76 18 122/80 100 08/16/22 14:00 36.9 C 72 14 114/65 96 Intake/Output Intake/Output: Intake & Output 08/14/22 08/15/22 08/16/22 08/17/22 23:59 23:59 23:59 23:59 Intake Total 5260 4220 3240 860 Output Total 9710 8225 1875 1000 Balance 2560 1495 1365 -140 Meds/Results Medications: Active Medications Generic Name Dose Route Start Last Admin Trade Name Freq PRN Reason Stop Dose Admin Acetaminophen 650 mg 08/13/22 15:06 Acetaminophen 325 Mg Tablet PO Q4H PRN Mild Pain (1-3) or Fever Hydrocodone Bitart/Acetaminophen 1 tab 08/13/22 15:06 08/17/22 09:27 Hydrocodone/Acetaminophen (*Crx) 5-325 Mg Tablet PO 1 tab Q4H PRN Administration Pain Rated 4-6 Allopurinol 300 mg 08/15/22 12:15 08/17/22 08:20 Allopurinol 300 Mg Tablet PO 300 mg DAILY@0800 [place] Administration Atorvastatin Calcium 20 mg 08/14/22 09:00 08/17/22 08:21 Atorvastatin 20 Mg Tablet PO 20 mg DAILY [place] Administration Cyanocobalamin 1,000 mcg 08/15/22 12:10 08/17/22 08:20 Cyanocobalamin 1,000 Mcg Tablet PO 1,000 mcg QAM [place] Administration Enoxaparin Sodium 40 mg 08/14/22 09:00 08/17/22 08:21 Enoxaparin 40 Mg/0.4 Ml Syringe SUB-Q Not Given DAILY [place] Folic Acid 1 mg 08/14/22 09:00 08/17/22 08:21 Folic Acid 1 Mg Tablet PO 1 mg DAILY [place] Administration Furosemide 20 mg 08/17/22 09:00 08/17/22 08:21 Furosemide 20 Mg Tablet PO 20 mg DAILY [place] Administration Gabapentin 600 mg 08/14/22 09:00 08/17/22 08:20 Gabapentin 300 Mg Capsule PO 600 mg TID [place] Administration Cefazolin Sodium 1 gm in 50 mls @ 100 mls/hr 08/13/22 22:00 08/17/22 05:47 Ancef 1 Gm/D5w 50 Ml Pm IVPB Infused Q8H [place] Infusion Losartan Potassium 100 mg 08/17/22 09:00 08/17/22 08:21 Losartan Potassium 100 Mg Tablet PO 100 mg DAILY [place] Administration Metoprolol Succinate 50 mg
[2022-08-17 14:14] VITALS: BP 123/77; PULSE 83; RESP 16; TEMP 36.6; O2SAT 99
--- NOTE | 2022-08-17 17:31 | PM.IMPN ---
Progress Note: A&P Assessment and Plan (1) Cellulitis of left lower limb: Code(s): L03.116 - Cellulitis of left lower limb Status: Acute Assessment and Plan: Presented with left leg redness and swelling after a fall 5 days prior Left foot x-ray with moderate polyarticular OA. Most advanced at the 1st MTP joint. Continue IV Ancef Preliminary blood cultures negative today Supportive care. Analgesics as needed. Elevate extremity. Adama bandage Venous Doppler negative bilaterally on admission. At the request of Nephrology, General surgery came and evaluated patient on 08/15 for possible compartment syndrome, however that is not a high concern of this patient and they have signed off the case. No further testing to be done at this time for compartment syndrome. Clinically improving. Erythema and warmth improved. Remains edematous. Repeat venous Dopplers still negative on 08/16. P.o. furosemide has been resumed due to edema (previously held due to RADHA) (2) RADHA (acute kidney injury): Code(s): N17.9 - Acute kidney failure, unspecified Status: Resolved Assessment and Plan: Acute on chronic. Patient with history of stage III CKD. Etiology most likely acute infection Renal function has normalized Appreciate nephrology consultation Renal ultrasound reviewed (3) Chronic gout of multiple sites: Code(s): M1A.09X0 - Idiopathic chronic gout, multiple sites, without tophus (tophi) Status: Acute Assessment and Plan: History of gout, no acute flare Allopurinol initially held in setting of RADHA, has been resumed given resolution (4) Essential (primary) hypertension: Code(s): I10 - Essential (primary) hypertension Status: Chronic Assessment and Plan: Blood pressure controlled. Last BP 123/77 Continue furosemide, losartan, metoprolol (5) Open wound of right great toe: Qualifiers: Encounter type: subsequent encounter Qualified Code(s): S91.101D - Unspecified open wound of right great toe without damage to nail, subsequent encounter Code(s): S91.101A - Unspecified open wound of right great toe without damage to nail, initial encounter Status: Acute Assessment and Plan: Chronic, followed by patient's marine welder, Dr. Baez Patient may continue to utilize topical ointment has been prescribed. He may also continue to use postop shoe. (6) Anemia: Code(s): D64.9 - Anemia, unspecified Status: Acute Assessment and Plan: H&H remaining stable Continue to monitor. No overt bleeding. (7) Hypomagnesemia: Code(s): E83.42 - Hypomagnesemia Status: Acute Assessment and Plan: Mag 1.5 today. 2 g IV magnesium sulfate Begin p.o. magnesium oxide 400 mg daily (8) Subclinical hypothyroidism: Code(s): E03.8 - Other specified hypothyroidism Status: Acute Assessment and Plan: TSH elevated at 11.20. Free T4 is 1.40. Patient asymptomatic Will need repeat TSH with reflex in 4-6 weeks as an outpatient Subjective Date/time seen: 08/17/22 17:31 Interval history: Date of service: 08/17/2022 Segundo Danielson is a 62-year-old male with a history of hypertension, CKD, hyperlipidemia, peripheral neuropathy who is seen in follow-up for cellulitis of his left lower extremity. He is feeling better today. He states he had a good night last night and his symptoms are improved today. Currently he endorses 7/10 discomfort in his lower extremity but states this improves with taking [place]. He states the swelling and tightness have improved. He does endorse numbness and tingling of his bilateral lower extremities. He was upset with the way his Adama bandage was wrapped yesterday and was more upset that he felt nobody addressed these concerns appropriately. Last night his nurse rewrapped his Adama bandage and he was much more satisfied with this. Corry
[2022-08-17 19:28] VITALS: BP 127/75; PULSE 65; RESP 16; TEMP 36.5; O2SAT 96
[2022-08-17] MEDS: MAGNESIUM SULF 2 GM/WATER 50ML 2 GM/50 ML BAG IVPB (19:40)
[2022-08-17] MEDS: MORPHINE SULFATE (*CRX) 4 MG/ML INJ IV PUSH ×2 (20:20→22:23)
[2022-08-18 03:13] VITALS: BP 109/68; PULSE 72; RESP 16; TEMP 36.6; O2SAT 94
[2022-08-18 04:44] LABS: Hematocrit 27.1 % (42.0-52.0); Hemoglobin 8.6 g/dL (14.0-18.0); Immature Platelet Fraction Pct 5.3 % (0.9-11.2); Mean Corpuscular HGB Conc 31.7 g/dl (32-36); Mean Corpuscular Hemoglobin 31.6 pg (26-34); Mean Corpuscular Volume 99.6 fl (80-100); Mean Platelet Volume 10.8 fl (7.4-10.4); Platelet Count Result 140 k/mm3 (150-375); Red Blood Count 2.72 M/mm3 (4.6-6.20); Red Cell Distribution Width 13.7 % (11.5-14.5); White Blood Count 5.8 K/mm3 (4.5-10.0)
[2022-08-18 05:02] LABS: Anion Gap 8 mmol/L (8-16); Blood Urea Nitrogen 12 mg/dL (9-20); Calcium 8.8 mg/dL (8.4-10.2); Carbon Dioxide 25 mmol/L (22-30); Chloride 104 mmol/L (98-107); Estimated CRCL calculation 85 ml/min; Estimated Glomerular Filt Rate > 60; Glucose 108 mg/dL (65-110); Potassium 3.5 mmol/L (3.4-5.0); Sodium 137 mmol/L (137-145)
[2022-08-18] MEDS: HYDROcodone/acetaminophen (*CRX) 5-325 MG TABLET 1 TAB PO ×2 (06:15→10:15)
[2022-08-18] MEDS: ATORVASTATIN 20 MG TABLET PO (08:06)
[2022-08-18] MEDS: GABAPENTIN 300 MG CAPSULE 600 MG PO ×2 (08:06→13:26)
[2022-08-18] MEDS: allopurinoL 300 MG TABLET PO (08:06)
[2022-08-18] MEDS: FUROSEMIDE 20 MG TABLET PO (08:06)
[2022-08-18 08:07] VITALS: PULSE 74
[2022-08-18] MEDS: MAGNESIUM OXIDE 400 MG TABLET PO (08:07)
[2022-08-18] MEDS: FOLIC ACID 1 MG TABLET PO (08:07)
[2022-08-18] MEDS: LOSARTAN POTASSIUM 100 MG TABLET PO (08:07)
[2022-08-18] MEDS: CYANOCOBALAMIN 1,000 MCG TABLET 1000 MCG PO (08:07)
[2022-08-18] MEDS: PANTOPRAZOLE 40 MG TABLET PO (08:07)
[2022-08-18] MEDS: METOPROLOL SUCCINATE EXT REL 50 MG TABCR PO (08:07)
[2022-08-18 08:46] LABS: Magnesium 1.8 mg/dL (1.6-2.3)
--- NOTE | 2022-08-18 11:45 | PM.DS ---
DS: Admitting Diagnosis Discharge Date 08/18/2022 Admitting Diagnosis cellulitis DS: Discharge Diagnosis Discharge Diagnosis (1) Cellulitis of left lower limb: Code(s): L03.116 - Cellulitis of left lower limb Status: Acute Assessment and Plan: Presented with left leg redness and swelling after a fall 5 days prior Left foot x-ray with moderate polyarticular OA. Most advanced at the 1st MTP joint. Treated with IV Ancef with symptomatic improvement. Transition to p.o. Keflex at time of discharge to complete a 7 day course of antibiotic therapy Blood cultures negative Supportive care provided including analgesics, Adama bandage, elevation Venous Doppler negative bilaterally x2 General surgery came and evaluated patient on 08/15 for possible compartment syndrome but was not felt to be of high concern and there was no need for further evaluation (2) RADHA (acute kidney injury): Code(s): N17.9 - Acute kidney failure, unspecified Status: Resolved Assessment and Plan: Acute on chronic. Patient with history of stage III CKD. Etiology most likely acute infection He was seen in consultation by nephrology Renal function normalized (3) Chronic gout of multiple sites: Code(s): M1A.09X0 - Idiopathic chronic gout, multiple sites, without tophus (tophi) Status: Acute Assessment and Plan: History of gout, no acute flare Allopurinol initially held in setting of RADHA, resumed following resolution (4) Essential (primary) hypertension: Code(s): I10 - Essential (primary) hypertension Status: Chronic Assessment and Plan: Blood pressure was well controlled Continue home regimen consisting of furosemide and losartan Amlodipine was discontinued due to lower extremity edema. Transition to metoprolol succinate 50 mg daily which patient tolerated well and will continue (5) Open wound of right great toe: Qualifiers: Encounter type: subsequent encounter Qualified Code(s): S91.101D - Unspecified open wound of right great toe without damage to nail, subsequent encounter Code(s): S91.101A - Unspecified open wound of right great toe without damage to nail, initial encounter Status: Acute Assessment and Plan: Chronic, followed by patient's electrical design technician, Dr. Baez Patient may continue to utilize topical ointment has been prescribed and postop shoe (6) Anemia: Code(s): D64.9 - Anemia, unspecified Status: Acute Assessment and Plan: H&H remainied stable with no active bleeding. (7) Hypomagnesemia: Code(s): E83.42 - Hypomagnesemia Status: Acute Assessment and Plan: Magnesium was monitored and supplemented. (8) Subclinical hypothyroidism: Code(s): E03.8 - Other specified hypothyroidism Status: Acute Assessment and Plan: TSH elevated at 11.20. Free T4 is 1.40. Patient asymptomatic Will need repeat TSH with reflex in 4-6 weeks as an outpatient. Patient aware of need for follow-up Plan B12 levels found to be mildly decreased and was initiated on p.o. cyanocobalamin 1000 mcg daily. DS: Summary Hospital Course Hospital Course: Date of admission: 08/13/2022 Date of discharge: 08/18/2022 Segundo Danielson is a 62-year-old male with a history of hypertension, CKD, hyperlipidemia, peripheral neuropathy who presented to the emergency department on 08/13/2022 with complaints of left lower extremity redness swelling worsened over the past week. On presentation to the ED, his vital signs were stable, he was afebrile, BUN 35 creatinine 2.4, venous Doppler negative for DVT. He was admitted to the hospitalist service for further evaluation and management and was seen in consultation by nephrology for RADHA. Treated with Ancef for cellulitis with symptomatic improvement. Able to be transition to p.o. Keflex which he will continue as an outpatient. RADHA resolved with Nephrolo
== END 2022-08-18 16:40 | disposition home or self-care (01) | DRG 603 ==
LOC: ANHED 13:18 → ANH2MED 16:35
PROVIDERS: Internal Medicine Nephrology; Nurse Practitioner; Nurse Practitioner Adult Health; Physician Assistant; Admitting Provider Chiropractor; Emergency Provider Emergency Medicine; PCP Internal Medicine; Visit Provider Family Medicine
DX: L03.116 Cellulitis of left lower limb (principal); N17.9 Acute kidney failure, unspecified; I12.9 Hypertensive chronic kidney disease with stage 1 through stage 4 chronic kidney disease, or unspecified chronic kidney disease; N18.30 Chronic kidney disease, stage 3 unspecified; D63.8 Anemia in other chronic diseases classified elsewhere; E53.8 Deficiency of other specified B group vitamins; E55.9 Vitamin D deficiency, unspecified; E78.5 Hyperlipidemia, unspecified; M06.9 Rheumatoid arthritis, unspecified; M1A.09X0 Idiopathic chronic gout, multiple sites, without tophus (tophi); S91.101D Unspecified open wound of right great toe without damage to nail, subsequent encounter; G62.9 Polyneuropathy, unspecified; F41.9 Anxiety disorder, unspecified; Z20.822 Contact with and (suspected) exposure to COVID-19
CPT/HCPCS: 36415; 73620; 76775; 80048; 80053; 80069; 82306; 82550; 82570; 82607; 82728; 82746; 83605; 83735; 84156; 84300; 84439; 84443; 84480; 84550; 85014; 85018; 85025; 85027; 85055; 85610; 85730; 87040; 93970; 93971; 96361; 96365; 96367; 96372; 96375; 99285; A9270; C9803; G0378; J0690; J1650; J2270; J2405; J3475; J7030; U0003; U0005

== ENCOUNTER 2022-12-10 08:17 | Outpatient (CLI) | payer MEDICARE, SELFPAY ==
--- NOTE | ~2022-12-10 | US_ITS ---
EXAMINATION: US arterial ankle brachial ind DATE: 12/10/2022 11:20 INDICATION: Toe pain and prior debridement. Unspecified disorder of arteries and arterioles. TECHNIQUE: Segmental pressures and plethysmographic and Doppler waveforms of the brachial and lower e xtremity arteries were obtained. COMPARISON: None. FINDINGS: Right and left brachial artery pressures of 135 mm Hg and 155 mm Hg, respectively, are concordant (no rmal difference <= 30 mmHg). The right ankle-brachial index (CIPRIANO) is 1.32 (normal >= 0.9-1.0). The right great toe-brachial index (TBI) is 0.43 (normal >= 0.65). Arterial Doppler waveforms are triphasic at the right posterior tibia l artery and biphasic at the right dorsalis pedis artery, both with with brisk systolic upstrokes.. The left CIPRIANO is 1.25. The left TBI is 0.47. Arterial Doppler waveforms are triphasic with brisk systo lic upstrokes at both left posterior tibial and dorsalis pedis arteries. IMPRESSION: 1. Mild peripheral vascular disease with normal bilateral ABIs and mildly decreased bilateral TBIs Reviewed, dictated and finalized at location A. NSION SERVICE ADVISOR IMPRESSION: 1. Mild peripheral vascular disease with normal bilateral ABIs and mildly decre ased bilateral TBIs
--- NOTE | ~2022-12-10 | US_ITS ---
EXAMINATION: US venous doppler [facility] DATE: 12/10/2022 11:22 INDICATION: Chronic venous insufficiency of the lower limbs. Left lower limb pain. TECHNIQUE: Grayscale ultrasound images without and with compression and Doppler ultrasound images of the bilateral lower extremity veins were obtained. COMPARISON: Ultrasound 08/16/2022 FINDINGS: The visualized portions of right common femoral vein, profunda (deep) femoral vein, femoral vein, pop liteal vein, peroneal veins, posterior tibial veins, and greater saphenous vein are patent. The right greater saphenous vein measures 4 mm in the proximal thigh, distal thigh, and calf and 3 mm near the ankle. The lesser saphenous vein measures 4 mm. No reflux. The visualized portions of left common femoral vein, profunda femoral vein, femoral vein, popliteal v ein, peroneal veins, posterior tibial veins, and greater saphenous vein are patent. The left greater saphenous vein measures 3 mm in the upper and lower thigh and 3 mm in the calf. No reflux. The lesser saphenous vein measures 1 mm. IMPRESSION: 1. No deep venous thrombosis. 2. No reflux. Reviewed, dictated and finalized at location A. MICS TEST ENGINEER
== END 2022-12-10 08:18 | disposition home or self-care (01) ==
PROVIDERS: PCP Internal Medicine; Visit Provider Orthopaedic Surgery
DX: I73.9 Peripheral vascular disease, unspecified (principal); I87.2 Venous insufficiency (chronic) (peripheral); I77.9 Disorder of arteries and arterioles, unspecified; M79.672 Pain in left foot; M79.671 Pain in right foot
CPT/HCPCS: 93922; 93970

== ENCOUNTER → 2023-05-03 08:49 | Outpatient (CLI) | payer MEDICARE, SELFPAY ==
--- NOTE | ~2023-05-03 | US_ITS ---
US abdomen limited INDICATION: Abnormal levels of serum enzymes. PROCEDURE: Realtime right upper abdominal ultrasound. COMPARISON: No prior studies for comparison. FINDINGS: The pancreas is normal without focal mass or pancreatic ductal dilation. Liver echotexture is diffusely increased, consistent with fatty infiltration. There is a right renal cyst measuring 1. 8 cm. There is normal directional flow in the portal vein. The gallbladder is normal without stones, gallbladder wall thickening or pericholecystic fluid. Comm on bile duct measures 5 mm. No sonographic Carmona's sign. IMPRESSION: 1: Fatty infiltration of the liver. Reviewed, dictated and finalized at location L.
== END ==
PROVIDERS: PCP Internal Medicine; Visit Provider Internal Medicine
DX: R74.8 Abnormal levels of other serum enzymes (principal); K76.89 Other specified diseases of liver
CPT/HCPCS: 76705